=== PATIENT | male | born 1940 | race Caucasian/White ===

== ENCOUNTER 2020-05-29 08:05 | Emergency (ER) | payer MEDICARE, SELFPAY ==
--- NOTE | ~2020-05-29 | XR_ITS ---
EXAMINATION: XR finger 3rd LT min 2V DATE: 05/29/2020 08:32 INDICATION: Left hand third digit injury and pain and swelling. TECHNIQUE: 4 views of left hand third digit were obtained. COMPARISON: Left hand radiographs 12/26/2009 FINDINGS: There is an avulsion fracture of dorsal base of third middle phalanx with 4 mm distraction and rotation. 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 IMPRESSION: 1. Avulsion fracture of dorsal base of third middle phalanx. Reviewed, dictated and finalized at location B.
[2020-05-29 08:17] VITALS: BP 153/78; PULSE 83; RESP 16; TEMP 36.6; O2SAT 99
--- NOTE | 2020-05-29 08:18 | ED.GENADULT ---
HPI - General Adult General Chief complaint: Extremity Injury, Upper Stated complaint: Injury Time Seen by Provider: 05/29/20 08:30 Source: patient and RN notes reviewed Mode of arrival: ambulatory Limitations: no limitations History of Present Illness HPI narrative: 79-year-old male presents with concern for injury to the third digit of his left hand. Reports on Wednesday he tripped and fell injuring his finger. He reports a small skin tear on the right wrist, denies any other injury. Reports he used ice on the finger, but continues to have swelling. MD complaint: Finger injury Location: left and upper extremity Related Data Home Medications Medication Instructions Recorded Confirmed amlodipine 10 mg PO DAILY 05/29/20 05/29/20 atorvastatin 20 mg PO DAILY 05/29/20 05/29/20 hydrochlorothiazide 12.5 mg PO DAILY 05/29/20 05/29/20 lisinopril 40 mg PO DAILY 05/29/20 05/29/20 potassium chloride 10 meq PO DAILY 05/29/20 05/29/20 Allergies Allergy/AdvReac Type Severity Reaction Status Date / Time No Known Allergies Allergy Verified 05/29/20 08:31 Review of Systems Review of Systems: Narrative: CONSTITUTIONAL: Denies malaise, chills, sweats, or fever. CARDIOVASCULAR: Denies chest pain, palpitations RESPIRATORY: Denies cough or dyspnea. SKIN: Reports skin tear on the right wrist MUSCULOSKELETAL: Reports pain and swelling in the third digit of the left hand NEUROLOGIC: Denies numbness, weakness. All systems reviewed & are unremarkable except as noted in HPI and below PMFSH Comments At time of signature, agree with nursing past medical, surgical, social and family history. There is no relevant family history pertinent to the presenting complaint Exam Narrative: Exam Narrative: GENERAL: Well-appearing, well-nourished, and in no acute distress. HEAD: Normocephalic EYES: PERRLA, conjunctivae clear NECK: Supple. CHEST: Speaks in full sentences. No respiratory distress. HEART: Regular rate and rhythm. Normal and equal peripheral pulses. EXTREMITIES: Left hand and digits of hand have normal strength and sensation. 5/5 strength with digit flexion, extension. Range of motion normal. Hyperextension of the DIP joint of the third digit of the left hand, decreased flexion of the digit. No clubbing, cyanosis, or edema noted. Tenderness to the PIP joint DIP joint of the third digit. Skin intact. Median, ulnar and radial nerve intact. Normal sensation of each side of finger. Can perform 'okay' sign, 'cross over finger test of index and middle fingers' and 'thumbs up' sign. No scissoring. Normal thumb opposition. Good capillary refill and radial pulse. Distal capillary refill <3 seconds. SKIN: Warn, dry, intact, pink. No rash NEURO: Alert and oriented x3. PSYCH: Normal mood and affect Course Course Emergency Course: Patient is aware of diagnosis, understands and agrees to treatment plan. Anticipatory guidance given. Patient agrees to follow-up as directed and is aware of reasons to seek care at the emergency department. Portions of this record may have been created with voice recognition software Vital Signs Vital signs: Vital Signs Temperature 97.9 F 05/29/20 08:17 Pulse Rate 83 05/29/20 08:17 Respiratory Rate 16 05/29/20 08:17 Blood Pressure 153/78 H 05/29/20 08:17 Pulse Oximetry 99 05/29/20 08:17 Temperature 97.9 F 05/29/20 08:17 Pulse Rate 83 05/29/20 08:17 Respiratory Rate 16 05/29/20 08:17 Blood Pressure 153/78 H 05/29/20 08:17 Pulse Oximetry 99 05/29/20 08:17 Reviewed. Pt has been instructed to follow up with his primary care provider within the next week regarding his elevated blood pressure today. Medical Decision Making MDM Narrative Medical decision making narrative: Patients injury and pain is consistent with musculoskeletal etiology. No signs of neurological or vascular compromise on exam. Compartments and tissues are soft without signs of compartment syndrome. Pain is felt appropria
== END 2020-05-29 09:03 | disposition home or self-care (01) ==
PROVIDERS: Emergency Provider Nurse Practitioner; PCP Physician Assistant
DX: S62.623A Displaced fracture of middle phalanx of left middle finger, initial encounter for closed fracture (principal); W01.0XXA Fall on same level from slipping, tripping and stumbling without subsequent striking against object, initial encounter; E78.00 Pure hypercholesterolemia, unspecified; I10 Essential (primary) hypertension
CPT/HCPCS: 29130; 73140; 99214; G0463

== ENCOUNTER 2024-05-12 09:22 | Emergency (ER) | payer MEDICARE, SELFPAY ==
--- NOTE | ~2024-05-12 | XR_ITS ---
XR chest 2V Ordering provider: Nishi Mirza APRN History: 83 years Male with . Cough SOB x 6-8 weeks,COUGH WITH INSPIRATION . Comparison: None. FINDINGS: MEDIASTINUM: The cardiac silhouette is not enlarged. Slightly prominent melita. LUNGS: No infiltrates, effusions or pneumothorax. OTHER: No free air under the diaphragm. Degenerative spine. IMPRESSION: No acute cardiopulmonary pathology. Reviewed, dictated and finalized at location A.
--- NOTE | 2024-05-12 09:26 | ED.URI ---
HPI - URI/Sore Throat General Chief Complaint: Upper Respiratory Infection Stated Complaint: chest congestion/sob Time Seen by Provider: 05/12/24 09:44 Source: patient, RN notes reviewed and old records reviewed Mode of arrival: ambulatory Limitations: no limitations History of Present Illness HPI Narrative: 83-year-old male presents to the [facility] with complaints of cough, congestion and shortness of breath that has been going on for the last 6-8 weeks Patient has not followed up with his primary care provider states that he is switching 1 due to ?my primary care to disappeared. ? Denies any past chest pain, denies shortness of breath. Denies any extremity swelling. States that sometimes a vaporizer helps, sometimes the Mucinex helps. Onset (ago): week(s) (-) Related Data Home Medications Medication Instructions Recorded Confirmed amlodipine 10 mg tablet 10 mg PO DAILY 05/29/20 05/29/20 atorvastatin 20 mg tablet 20 mg PO DAILY 05/29/20 05/29/20 hydrochlorothiazide 12.5 mg tablet 12.5 mg PO DAILY 05/29/20 05/29/20 lisinopril 40 mg tablet 40 mg PO DAILY 05/29/20 05/29/20 potassium chloride 10 mEq 10 meq PO DAILY 05/29/20 05/29/20 tablet,extended release olmesartan 40 mg tablet mg 05/12/24 Allergies Allergy/AdvReac Type Severity Reaction Status Date / Time No Known Allergies Allergy Verified 05/29/20 08:31 Review of Systems Review of Systems: All systems reviewed & are unremarkable except as noted in HPI and below Constitutional: Constitutional: Reports no additional constitutional complaints Eyes: Eyes: Reports no additional eye complaints ENT: Reports system reviewed and no additional complaints, except as documented Cardiovascular: Cardiovascular: Reports no additional cardiovascular complaints, Denies chest pain and Denies dyspnea Respiratory: Respiratory: Reports as per HPI, Reports chest congestion, Reports cough and Denies dyspnea Gastrointestinal: Gastrointestinal: Reports no additional gastrointestinal complaints, Denies abdominal pain, Denies nausea and Denies vomiting Musculoskeletal: Musculoskeletal: Reports no additional musculoskeletal complaints Integumentary/Breasts: Skin/Breast: Reports system reviewed and no additional complaints, except as docu Neurologic: Reports system reviewed and no additional complaints, except as documented Psychiatric: Psychiatric: Reports no additional psychiatric complaints Allergic/Immunologic: Allergic/Immunologic: Reports no additional allergic/immunologic complaints PMFSH Past Medical History Medical History (Updated 05/12/24 @ 19:15 by Nishi Mirza APRN) High cholesterol History of high blood pressure Comments At the time of my signature, I reviewed and agree with the nursing past medical, surgical, social, and family history. There is no relevant family history pertinent to the patient complaint. Exam Const: General: cooperative, healthy appearing, comfortable, no acute distress, well developed, alert and well nourished Nutritional Appearance: well nourished Orientation/consciousness: patient oriented x3 Limitations: no limitations HENMT: Head: normal to inspection Ears: hearing grossly normal bilaterally, external ears normal, TM's normal bilaterally, EAC's normal, mastoids normal and no periauricular adenopathy Face/Nose/Sinus: Normal external nose present, Normal nares present, Normal nasal mucous membranes and turbinates present, normal facial exam and face symmetric Face and sinus: normal facial exam and face symmetric Throat: uvula midline, postnasal drainage and no uvular edema Eyes: General: appearance normal, both eyes and all related structures Alignment and Position: alignment normal Periorbital: periorbital findings normal Pupils: Equal, round and reactive pupils present EOM: EOMs intact bilaterally Neck: Neck: normal visual inspection, full ROM, no lymphadenopathy and no meningeal signs Chest: Chest palpation & inspection
[2024-05-12 09:38] VITALS: BP 130/60; PULSE 76; RESP 16; TEMP 36.8; O2SAT 99
== END 2024-05-12 10:32 | disposition home or self-care (01) ==
PROVIDERS: Emergency Provider Nurse Practitioner; PCP Physician Assistant
DX: J40 Bronchitis, not specified as acute or chronic (principal); J06.9 Acute upper respiratory infection, unspecified; E78.00 Pure hypercholesterolemia, unspecified; I10 Essential (primary) hypertension
CPT/HCPCS: 71046; 99213; G0463

== ENCOUNTER 2025-08-08 07:07 | Outpatient (CLI) | payer MEDICARE, SELFPAY ==
--- OUTSIDE RECORDS SUMMARY | 2009-06-26 03:45 | XMS_ITS | Continuity of Care Document ---
Author Organization [facility] Address [address] [facility] [address] [place] [address] Phone Care Team Providers Care Customer Support Representative Name Role Phone Naun Sawyer Unavailable Unavailable Procedures Procedure Date Eye Exam & Treatment No Script Refraction Advance Directives Directive Yes / No Effective Date File Name No Information Encounters Encounter Description Practice Location Reason(s) For Visit Diagnoses Date Provider Providers Copied on Encounter [facility], [address], [place], [place], [id number], tel:[phone] [facility] No Information [phone] 9 Silverio Magallon. [address] [facility] [address], [place], [address], [place]. tel:[phone] Family History Family Member Type Diagnosis Age At Onset No Information Payers Payer name Insurance type Covered republican ID Authoriza tion(s) Medicare [facility] [id number] [facility] CI [id number] Social History Type Description Quantity Date Captured Comments Sex Male Smoking Status No Information Chief Complaint And Reason For Visit No Information Reason For Referral Reason For Referral No Information History Of Present Illness Encounter Date Complaint History Of Prese nt Illness No Information Functional Status Date Functional Assessmen t No Information Instructions Date Instruction Additional Infor mation No Information Assessments Type Assessment Date No Information Patient Care Teams Name Effective Dates (start - stop) Status Members No Information
--- OUTSIDE RECORDS SUMMARY | 2025-08-08 07:12 | XMS_ITS | Encounter Summary ---
Author Organization [facility] Address [address] [facility] [address] [place] [address] Care Team Providers Care Wildlife Enforcement Major Name Role Phone Fred Norwood Primary Care Provider [phone] Encounter Details Date Type Department Care Team (Late st Contact Info) Description 12/17/2016 Orders Only [facility] ProviderKartik MD [address] [place] [address] Social History Tobacco Use Types Packs/Day Years Used Date Smoking Tobacco: Never Alcohol Use Standard Drinks/Week Comments No 0 (1 standard drink = 0.6 oz pur e alcohol) Sex and Gender Information Value Date Recorded Sex Assigned at Not on file 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 Historical Provider [facility] PROCE DURES Final Result * CARDIOLOGY REPORT (12/17/2016) Anatomical Region Laterality Modality Other Narrative 12/17/2016 Ordered by an unspecified provider. Historical Provider [facility] CARDIAC SERVICES PROCE DURES Final Result documented in this encounter Visit Diagnoses Not on filedocumented in this encounter Additional Health Concerns Infection Onset Date Last Indicated Resolved Time COVID: Suspected 08/05/2023 08/05/2023 08/05/2023 2:57 PM CDT documented as of this encounter Care Teams Wildlife Enforcement Major Relationship Specialty Start Date End Date Fred Norwood PA PCP - General Family Medicine 09/26/19 documented as of this encounter
--- OUTSIDE RECORDS SUMMARY | 2025-08-08 07:12 | XMS_ITS | Encounter Summary ---
Author Organization [facility] Address [address] 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 Historical Provider [facility] AILIN HERMAN Final Result documented in this encounter Visit Diagnoses Not on filedocumented in this encounter Additional Health Concerns Infection Onset Date Last Indicated Resolved Time COVID: Suspected 08/05/2023 08/05/2023 08/05/2023 2:57 PM CDT documented as of this encounter Care Teams Acrobatic Dancer Relationship Specialty Start Date End Date Fred Norwood PA PCP - General Family Medicine 09/26/19 documented as of this encounter
--- OUTSIDE RECORDS SUMMARY | 2025-08-08 07:12 | XMS_ITS | Encounter Summary ---
Author Organization [facility] Address [address] [facility] [address] [place] [address] Care Team Providers Care Investment Associate Name Role Phone Fred Norwood Primary Care Provider [phone] Encounter Details Date Type Department Care Team (Late st Contact Info) Description 09/10/2009 Orders Only [facility] ProviderKartik MD [address] [place] [address] Social History Tobacco Use Types Packs/Day Years Used Date Smoking Tobacco: Never Assessed Sex and Gender Information Value Date Recorded Sex Assigned at Not on file 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 Historical Provider [facility] AILIN HERMAN Final Result documented in this encounter Visit Diagnoses Not on filedocumented in this encounter Additional Health Concerns Infection Onset Date Last Indicated Resolved Time COVID: Suspected 08/05/2023 08/05/2023 08/05/2023 2:57 PM CDT documented as of this encounter Care Teams Investment Associate Relationship Specialty Start Date End Date Fred Norwood PA PCP - General Family Medicine 09/26/19 documented as of this encounter
--- OUTSIDE RECORDS SUMMARY | 2025-08-08 07:12 | XMS_ITS | Encounter Summary ---
Author Organization [facility] Address [address] [facility] [place] [address] Care Team Providers Care Music Ministries Director Name Role Phone Unavailable Primary Care Provider Unavailabl e Encounter Details Date Type Department Care Team (Late st Contact Info) Description 10/25/2019 Lab Requisition [facility] DermPath Lab [address] [facility] [place] [address] Sandi Byrne MD [address] [facility] [address] [place] [address] Social History Tobacco Use Types Packs/Day Years Used Date Smoking Tobacco: Never Alcohol Use Standard Drinks/Week Comments No 0 (1 standard drink = 0.6 oz pur e alcohol) Sex and Gender Information Value Date Recorded Sex Assigned at Not on file Legal Sex Male 6:09 PM SEMICONDUCTOR DEVELOPMENT TECHNICIAN Gender Identity Not on file Sexual Orientation Not on file documented as of this encounter Plan of Treatment Not on file documented as of this encounter Procedures Procedure Name Priority Date/Time Associated Diagnosis Comments DERMATOPATHOLOGY Routine 10/24/2019 12:0 0 AM SEMICONDUCTOR DEVELOPMENT TECHNICIAN documented in this encounter Results * DERMATOPATHOLOGY (10/24/2019 12:00 AM SEMICONDUCTOR DEVELOPMENT TECHNICIAN) Case Report Dermatopathology Report Case: [id number] Authorizing Provider: Sandi Byrne MD Collected: 10/24/2019 12:00 AM Ordering Location: [facility] DermPath Lab Received: 10/25/2019 07:24 AM Pathologist: Morgan Maddox MD Specimen: Skin, right neck 0 3:38 PM SEMICONDUCTOR DEVELOPMENT TECHNICIAN DERMATOPATHOLOGY LABORATORY Final Diagnosis Specimen A. 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 0 3:38 PM [facility] DERMATOPATHOLOGY LABORATORY Gross Description Specimen A: Received is one formalin filled container labeled with the patient's name and designated right neck. The specimen consists of a shave measuring [id number]. Jar 0. 0 3:38 PM [facility] DERMATOPATHOLOGY LABORATORY Microscopic Description Specimen A. SKIN, right neck: Attached to the undersurface of the epidermis, there are small aggregates of basaloid cells with a high nuclear to cytoplasmic ratio and peripheral palisading. 0 3:38 PM [facility] DERMATOPATHOLOGY LABORATORY Disclaimer An external and internal positive and negative controls are appropriate for the histochemical, immunohistochemical and immunofluorescence stain(s) in this case (if any), except where stated explicitly. The performance characteristics of the stain(s) cited in this report were developed and its performance characteristic determined by the Dermatopathology Laboratory at [facility], directed by Dr. Sabino Maddox. These tests need not be, and therefore are not, approved by the [place] Food and Drug Administration. The tests are used for clinical purposes. Billing Codes Specimen Charges Stain Charges 57283 1 0 3:38 PM [facility] DERMATOPATHOLOGY LABORATORY Embedded Images 0 3:38 PM [facility] DERMATOPATHOLOGY LABORATORY Pathology/Cytolog y TISSUE SPECIMEN FROM SKIN / Unknown 10/24/2019 10/25/2019 7:24 AM SEMICONDUCTOR DEVELOPMENT TECHNICIAN Sandi Byrne MD LAB - PATHOLOGY/CYTOLOGY OR DERABLES Final Result DERMATOPATHOLOGY LABORATORY [facility] - Department of Dermatology [facility] [facility] [place] [address], [facility] [phone] documented in this encounter Visit Diagnoses Not on filedocumented in this encounter
--- OUTSIDE RECORDS SUMMARY | 2025-08-08 07:12 | XMS_ITS | Encounter Summary ---
Author Organization [facility] Address [address] [facility] [address] [place] [address] Care Team Providers Care Ssis Developer Name Role Phone Fred Norwood Primary Care Provider [phone] Encounter Details Date Type Department Care Team (Late st Contact Info) Description 10/25/2015 Orders Only [facility] ProviderKartik MD [address] [place] [address] Social History Tobacco Use Types Packs/Day Years Used Date Smoking Tobacco: Never Assessed Sex and Gender Information Value Date Recorded Sex Assigned at Not on file 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 Historical Provider [facility] AILIN HERMAN Final Result documented in this encounter Visit Diagnoses Not on filedocumented in this encounter Additional Health Concerns Infection Onset Date Last Indicated Resolved Time COVID: Suspected 08/05/2023 08/05/2023 08/05/2023 2:57 PM CDT documented as of this encounter Care Teams Ssis Developer Relationship Specialty Start Date End Date Fred Norwood PA PCP - General Family Medicine 09/26/19 documented as of this encounter
--- OUTSIDE RECORDS SUMMARY | 2025-08-08 07:12 | XMS_ITS | Encounter Summary ---
Author Organization [facility] Address [address] [facility] [address] [place] [address] Care Team Providers Care Victorian Literature Professor Name Role Phone Fred Norwood Primary Care Provider [phone] Encounter Details Date Type Department Care Team (Late st Contact Info) Description 09/24/2009 Orders Only [facility] ProviderKartik MD [address] [place] [address] Social History Tobacco Use Types Packs/Day Years Used Date Smoking Tobacco: Never Assessed Sex and Gender Information Value Date Recorded Sex Assigned at Not on file 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 Historical Provider [facility] AILIN HERMAN Final Result documented in this encounter Visit Diagnoses Not on filedocumented in this encounter Additional Health Concerns Infection Onset Date Last Indicated Resolved Time COVID: Suspected 08/05/2023 08/05/2023 08/05/2023 2:57 PM CDT documented as of this encounter Care Teams Victorian Literature Professor Relationship Specialty Start Date End Date Fred Norwood PA PCP - General Family Medicine 09/26/19 documented as of this encounter
--- OUTSIDE RECORDS SUMMARY | 2025-08-08 07:12 | XMS_ITS | Clinical Summary ---
Author Organization [facility] Address [address] [place] [address] Phone Care Team Providers Care Assistant Front Desk Manager Name Role Phone Fred Norwood Primary Care Provider Unavaila ble Allergies No known active allergies Medications simvastatin (ZOCOR) 10 MG Tablet Take 10 mg by mouth every evening. Active aspirin 81 MG Chewable Tablet Take 162 mg by mouth daily. Active lisinopril (PRINIVIL, ZESTRIL) 40 MG Tablet Take 40 mg by mouth daily. Active hydrochlorothiaz chio (MICROZIDE) 12.5 MG Capsule Take 12.5 mg by mouth daily. Active amLODIPine (NORVASC) 10 MG Tablet Take 10 mg by mouth daily. Active metoprolol Succinate (TOPROL-XL) 50 MG TABLET SR 24 HR Take 1 Tab by mouth daily. 90 Tab 3 04/05/2016 Active Immunizations Immunization Administration Dates Next Due Influenza Vaccine greater than 3 yrs 07/05/2015 Pneumococcal Vaccine Adult - 23 Valent 5 Zoster Vaccine, live 07/05/2015 Family History Medical History Relation Name Comments Aneurysm Father Congestive Heart Failure Mother Relation Name Status Comments Father Mother Alive Social History Tobacco Use Types Packs/Day Years Used Date Smoking Tobacco: Never Alcohol Use Standard Drinks/Week Comments No 0 (1 standard drink = 0.6 oz pur e alcohol) Sex and Gender Information Value Date Recorded Sex Assigned at Not on file Legal Sex Male 9:47 PM CDT Gender Identity Not on file Sexual Orientation Not on file Last Filed Vital Signs Vital Sign Reading Time Taken Comments Blood Pressure 133/80 04/04/2016 8:25 AM CDT Pulse 82 04/04/2016 8:25 AM CDT Temperature 36 C (96.8 F) 04/04/2016 8:25 AM CDT Respiratory Rate 20 04/04/2016 8:25 AM CDT Oxygen Saturation 96% 04/04/2016 9:15 AM CDT Inhaled Oxygen Concentration - - Weight 76 kg (167 lb 8 oz) 04/04/2016 7:58 AM CD T Height 175.3 cm (5' 9) 04/04/2016 7:58 AM CDT Body Mass Index 24.74 04/04/2016 7:58 AM CDT Plan of Treatment Not on file Insurance MEDICARE [facility] Care Teams Assistant Front Desk Manager Relationship Specialty Start Date End Date Fred Norwood, GRIFFIN PCP - General Physician Customer Logistics Manager 04/04/16
--- OUTSIDE RECORDS SUMMARY | 2025-08-08 07:12 | XMS_ITS | Encounter Summary ---
Author Organization [facility] Address [address] [address] [facility] [address] [place] [id number] Care Team Providers Care Wire Stitcher Name Role Phone Fred Norwood Primary Care Provider [phone] Encounter Details Date Type Department Care Team (Late st Contact Info) Description 10/05/2014 Orders Only [facility] ProviderKartik MD [address] [place] [address] Social History Tobacco Use Types Packs/Day Years Used Date Smoking Tobacco: Never Assessed Sex and Gender Information Value Date Recorded Sex Assigned at Not on file 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 Historical Provider [facility] AILIN HERMAN Final Result documented in this encounter Visit Diagnoses Not on filedocumented in this encounter Additional Health Concerns Infection Onset Date Last Indicated Resolved Time COVID: Suspected 08/05/2023 08/05/2023 08/05/2023 2:57 PM CDT documented as of this encounter Care Teams Wire Stitcher Relationship Specialty Start Date End Date Fred Norwood PA PCP - General Family Medicine 09/26/19 documented as of this encounter
--- OUTSIDE RECORDS SUMMARY | 2025-08-08 07:12 | XMS_ITS | Encounter Summary ---
Author Organization [facility] Address [address] [facility] [address] [place] [address] Care Team Providers Care Instrumental Teacher Name Role Phone Unavailable Primary Care Provider Unavailabl e Encounter Details Date Type Department Care Team (Late st Contact Info) Description 12/25/2019 Lab Requisition [facility] [address] [facility] [place] [address] Sandi Byrne MD [address] [facility] [address] [place] [address] Social History Tobacco Use Types Packs/Day Years Used Date Smoking Tobacco: Never Alcohol Use Standard Drinks/Week Comments No 0 (1 standard drink = 0.6 oz pur e alcohol) Sex and Gender Information Value Date Recorded Sex Assigned at Not on file 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 Gender Identity Not on file Sexual Orientation Not on file documented as of this encounter Plan of Treatment Not on file documented as of this encounter Procedures Procedure Name Priority Date/Time Associated Diagnosis Comments DERMATOPATHOLOGY Routine 12/22/2019 12:0 0 AM EXPERIMENTAL ELECTRONICS DEVELOPER documented in this encounter Results * DERMATOPATHOLOGY (12/22/2019 12:00 AM EXPERIMENTAL ELECTRONICS DEVELOPER) Case Report Dermatopathology Report Case: [id number] Authorizing Provider: Sandi Byrne MD Collected: 12/22/2019 12:00 AM Ordering Location: [facility] Received: 12/25/2019 09:57 AM Pathologist: Morgan Maddox MD Specimen: Skin, right neck 0 4:14 PM CDT DERMATOPATHOLOGY LABORATORY Final Diagnosis Specimen A. SKIN, right neck: BASAL CELL CARCINOMA (C44.41) NOT PRESENT AT MARGIN DERMAL SCAR (L90.5) 0 4:14 PM CDT DERMATOPATHOLOGY LABORATORY at 1614 CDT Clinical History R/O BCC, superficial multifocal, biopsy proven. 0 4:14 PM CDT DERMATOPATHOLOGY LABORATORY Gross Description Specimen A: Received is one formalin filled container labeled with the patient's name and designated right neck. The specimen consists of a non-oriented ellipse of skin measuring [id number]. The epidermal surface consists of a centrally located 4x4mm previous biopsy site. The margin is inked green. The 12 o'clock and 6 o'clock tips are submitted in cassette 1. The remainder of the ellipse is serially sectioned and submitted in cassettes 2-4. Jar 0. 0 4:14 PM CDT DERMATOPATHOLOGY LABORATORY Microscopic Description Specimen A. SKIN, right neck: Within the dermis there are aggregates of basaloid cells with a high nuclear to cytoplasmic ratio and peripheral palisading. This lesion is not present at the margin of the specimen. There are fibroblasts and collagen bundles oriented parallel to the skin surface with elongated blood vessels, some of which are oriented perpendicular to the skin surface. 0 4:14 PM CDT DERMATOPATHOLOGY LABORATORY Disclaimer An external and internal [...] purposes. Billing Codes Specimen Charges Stain Charges 91270 1 0 4:14 PM CDT DERMATOPATHOLOGY LABORATORY Embedded Images 0 4:14 PM CDT DERMATOPATHOLOGY LABORATORY Pathology/Cytolog y TISSUE SPECIMEN FROM SKIN / Unknown 12/22/2019 12/25/2019 9:57 AM CDT Sandi Byrne MD LAB - PATHOLOGY/CYTOLOGY OR DERABLES Final Result DERMATOPATHOLOGY LABORATORY [facility] - Department of Dermatology [facility] [facility], [address] Floor Lab [address] [phone] documented in this encounter Visit Diagnoses Not on filedocumented in this encounter
--- OUTSIDE RECORDS SUMMARY | 2025-08-08 07:12 | XMS_ITS | Encounter Summary ---
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 Historical Provider Final Res ult * SCAN - LABS (04/22/2016 12:00 AM CDT) Narrative 04/22/2016 12:00 AM CDT Ordered by an unspecified provider. Historical Provider Final Res ult documented in this encounter Visit Diagnoses Not on filedocumented in this encounter Additional Health Concerns Infection Onset Date Last Indicated Resolved Time COVID: Suspected 08/05/2023 08/05/2023 08/05/2023 2:57 PM CDT documented as of this encounter Care Teams Burn Out Tender Lace Relationship Specialty Start Date End Date Fred Norwood PA PCP - General Family Medicine 09/26/19 documented as of this encounter
--- OUTSIDE RECORDS SUMMARY | 2025-08-08 07:12 | XMS_ITS | Clinical Summary ---
Author Organization [facility] at the [facility] Building Address [address] [place] [address] Care Team Providers Care Graphics Edit Technician Name Role Phone Fred Norwood Primary Care Provider [phone] Allergies No known active allergies Medications multivitamin tablet tablet take 1 tablet by oral route every day with food 0 0 7 Active Additional Information Patient taking differently: 1 tablet oral Daily, Informant: Self, Reported on 06/08/2025 aspirin 81 mg enteric coated tablet Take 1 tablet (81 mg total) by mouth daily Active potassium chloride ER 10 mEq CR tablet TAKE 1 TABLET(10 MEQ) BY MOUTH DAILY 90 tablet 2 4 Active Additional Information Patient taking differently: 10 mEq oral Daily, Informant: Self, Reported on 06/08/2025 hydroCHLOROthi azide (HYDRODIURIL) 12.5 mg tablet TAKE 1 TABLET(12.5 MG) BY MOUTH DAILY 90 tablet 3 4 Active amLODIPine (NORVASC) 10 mg tablet TAKE 1 TABLET(10 MG) BY MOUTH DAILY 90 tablet 2 4 Active Additional Information Patient taking differently: 10 mg oral Nightly, Informant: Self, Reported on 06/08/2025 olmesartan (BENICAR) 40 mg tablet TAKE 1 TABLET(40 MG) BY MOUTH DAILY 90 tablet 2 4 Active Additional Information Patient taking differently: 40 mg oral Daily, Informant: Self, Reported on 06/08/2025 atorvastatin (LIPITOR) 40 mg tabletIndicati ons:Pt reports he only takes 40 mg daily Take 1.5 tablets (60 mg total) by mouth nightly Active cholecalcifero l (VITAMIN D-3) 2000 unit tablet Take 1 tablet (2,000 Units total) by mouth every other day Active UNABLE TO FIND Take 1 each by mouth daily Med Name: TNVITAMINS TRIPLE MAGNESIUM COMPLEX CITRATE GLYCINATE OXIDE Active UNABLE TO FIND Take 1 each by mouth daily Med Name: Nature's Truth C 1000 mg plus bioflavonoids & wild dawna hips Active clopidogreL (PLAVIX) 75 mg tablet Take 1 tablet (75 mg total) by mouth daily 30 tablet 4 5 05/08/20 26 Active amoxicillin (AMOXIL) 500 mg tablet/capsule Take 4 caps (2000 mg) 1 hour prior to procedure. 4 tablet/capsu le 5 Active Active Problems Problem Noted Date Diagnosed Date S/P TAVR (transcatheter aortic valve replacement ) 05/08/2025 Severe aortic stenosis 02/12/2025 Herpes zoster without complication 05/11/2023 Assessment & Plan (05/11/2023 7:47 AM CDT): Resolving and 2 weeks out Rib pain 11/07/2020 Assessment & Plan (11/07/2020 12:07 PM FAREBOX REPAIRER): This is very mild and I am unable to reproduce for now we agreed to observe Acute left-sided low back pain without sciatica 11/07/2020 Assessment & Plan (11/07/2020 12:10 PM FAREBOX REPAIRER): I am getting x-rays, Thoracic back pain 11/07/2020 Assessment & Plan (11/07/2020 11:32 AM FAREBOX REPAIRER): Suspect from fall will get x-ray to r/o out compression fracture Interstitial myositis of right shoulder 08/14/20 19 Assessment & Plan (01/21/2023 8:45 AM CDT): Massage, ice, medications Option for trigger point injections Stenosis of left carotid artery 08/22/2018 Overview (02/07/2019): 50-79% stenosis. Assessment & Plan (01/20/2024 6:30 AM CDT): Stable and followed by cardiology Assessment & Plan (05/11/2023 7:49 AM CDT): Stable and followed by cardiology Assessment & Plan (01/21/2023 8:49 AM CDT): Seeing cardiology and had recent US Assessment & Plan (11/11/2021 11:15 AM FAREBOX REPAIRER): Consultation to cardiology Assessment & Plan (11/07/2020 12:07 PM FAREBOX REPAIRER): This is stable followed by cardiology Assessment & Plan (05/07/2020 9:55 AM CDT): 50-79, will follow Benign prostatic hyperplasia with lower urinary tract symptoms 08/10/2018 Assessment & Plan (01/20/2024 6:30 AM CDT): No treatment Assessment & Plan (05/11/2023 7:49 AM CDT): No treatment Assessment & Plan (11/11/2021 11:14 AM FAREBOX REPAIRER): Currently no treatment Assessment & Plan (11/07/2020 12:10 PM FAREBOX REPAIRER): No current treatment Depression screen 08/09/2018 Assessment & Plan (01/21/2023 8:46 AM CDT): No depression Assessment & Plan (11/07/2020 12:10 PM FAREBOX REPAIRER): Patient is not depressed Encounter for general adult medical examination without abnormal findings 08/09/2018 Assessment & Plan (01/20/2024 6:30 AM CDT): HEALTHCARE MAINTENANCE, please get shingrix Assessment & Plan (01/21/2023 8:47 AM CDT): HEALTHCARE MAINTENANCE, please get shingrix Assessment & Plan (11/11/2021 11:14 AM FAREBOX REPAIRER): Healthcare maintenance updated, colo guard ordered Assessment & Plan (11/07/2020 12:08 PM FAREBOX REPAIRER): Healthcare maintenance updated Encounter for risk and functional assessment of patient 08/09/2018 Assessment & Plan (01/20/2024 6:30 AM CDT): Patient is very at active and able to perform all ADL Assessment & Plan (11/07/2020 12:08 PM FAREBOX REPAIRER): Patient is very at active and able to perform all ADL Risk for falls 08/09/2018 Assessment & Plan (11/07/2020 12:07 PM FAREBOX REPAIRER): Patient has had a couple falls but it is due to his activity not inactivity or tripping BMI 22.0-22.9, adult 08/09/2018 Erectile dysfunction 02/08/2018 Assessment & Plan (01/20/2024 6:30 AM CDT): No tratment Assessment & Plan (05/11/2023 7:47 AM CDT): No tratment Assessment & Plan (11/11/2021 11:14 AM FAREBOX REPAIRER): Currently no treatment Assessment & Plan (11/07/2020 12:08 PM FAREBOX REPAIRER): No current treatment Assessment & Plan (05/07/2020 9:54 AM CDT): No treatment Acute pain of right shoulder 02/08/2018 Essential hypertension 07/19/2017 Assessment & Plan (01/20/2024 6:30 AM CDT): Images from the original note were not included. This is a stable chronic condition. Monitor blood pressure, call if out of parameters as we discussed. Low sodium and caffeine diet. baby asa as discussed if applicable. Diet, exercise and weight reduction. Labs as ordered. F/U routine Assessment & Plan (05/11/2023 7:48 AM CDT): Images from the original note were not included. This is a stable chronic condition. Monitor blood pressure, call if out of parameters as we discussed. Low sodium and caffeine diet. baby asa as discussed if applicable. Diet, exercise and weight reduction. Labs as ordered. F/U routine Assessment & Plan (01/21/2023 8:47 AM CDT): Images from the original note were not included. This is a stable chronic condition. Monitor blood pressure, call if out of parameters as we discussed. Low sodium and caffeine diet. baby asa as discussed if applicable. Diet, exercise and weight reduction. Labs as ordered. F/U routine Assessment & Plan (11/11/2021 11:14 AM FAREBOX REPAIRER): This is a stable chronic condition. Monitor blood pressure, call if out of parameters as we discussed. Low sodium and caffeine diet. baby asa as discussed if applicable. Diet, exercise and weight reduction. Labs as ordered. F/U routine Assessment & Plan (11/07/2020 12:08 PM FAREBOX REPAIRER): Images from the original note were not included. This is a stable chronic condition. Monitor blood pressure, call if out of parameters as we discussed. Low sodium and caffeine diet. baby asa as discussed if applicable. Diet, exercise and weight reduction. Labs as ordered. F/U routine Assessment & Plan (05/07/2020 9:54 AM CDT): Images from the original note were not included. This is a stable chronic condition. Monitor blood pressure, call if out of parameters as we discussed. Low sodium and caffeine diet. baby asa as discussed if applicable. Diet, exercise and weight reduction. Labs as ordered. F/U routine Mixed hyperlipidemia 07/19/2017 Assessment & Plan (01/20/2024 6:30 AM CDT): Patient is to continue present medications, work on diet and exercise as discussed, we did discuss the medications and potential side effects and signs and symptoms that would warrant calling office. Follow up routine. Assessment & Plan (05/11/2023 7:48 AM CDT): Patient is to continue present medications, work on diet and exercise as discussed, we did discuss the medications and potential side effects and signs and symptoms that would warrant calling office. Follow up routine. Assessment & Plan (01/21/2023 8:47 AM CDT): Patient is to continue present medications, work on diet and exercise as discussed, we did discuss the medications and potential side effects and signs and symptoms that would warrant calling office. Follow up routine. Assessment & Plan (11/11/2021 11:14 AM FAREBOX REPAIRER): Patient is to continue present medications, work on diet and exercise as discussed, we did discuss the medications and potential side effects and signs and symptoms that would warrant calling office. Follow up routine. Assessment & Plan (11/07/2020 12:08 PM FAREBOX REPAIRER): Patient is to continue present medications, work on diet and exercise as discussed, we did discuss the medications and potential side effects and signs and symptoms that would warrant calling office. Follow up routine. Assessment & Plan (05/07/2020 9:54 AM CDT): Patient is to continue present medications, work on diet and exercise as discussed, we did discuss the medications and potential side effects and signs and symptoms that would warrant calling office. Follow up routine. Vitamin D deficiency 07/19/2017 Assessment & Plan (01/20/2024 6:30 AM CDT): Continue current medication Assessment & Plan (11/11/2021 11:15 AM FAREBOX REPAIRER): Continue current medication Assessment & Plan (11/07/2020 12:07 PM FAREBOX REPAIRER): Please continue taking same dose Assessment & Plan (05/07/2020 9:55 AM CDT): CPM Personal history of other malignant neoplasm of skin 11/13/2011 Assessment & Plan (11/11/2021 11:15 AM FAREBOX REPAIRER): Consultation to Dermatology Assessment & Plan (11/07/2020 12:07 PM FAREBOX REPAIRER): Going to consult Dermatology for routine follow-up Resolved Problems Problem Noted Date Diagnosed Date Resolved Date Benign prostatic hyperplasia with lower urinary tract symptoms 05/07/2020 11/07/2020 Assessment & Plan (01/21/2023 8:46 AM CDT): This is well controlled Assessment & Plan (05/07/2020 10:03 AM CDT): Offered medications, wants to try restriction Pure hypercholesterolemia 08/28/2019 Encounters Date Type Department Care Team Description 07/05/2025 Telephone [facility] Cardiology [address] [place] [phone] Angie Montaño MD 06/20/2025 Documentation [facility] Cardiology [address] [place] [phone] Libertad Eisenberg, GENE 06/19/2025 Documentation [facility] Cardiology [address] [place] [phone] Libertad Eisenberg, GENE 06/19/2025 Telephone [facility] Cardiac Rehab [address] [place] [address] Jessica Head, sales and service engineer 06/08/2025 9:30 AM CDT Office Visit [facility] Cardiology [address] [place] [phone] Angie Montaño MD History of transcatheter aortic valve replacement (TAVR) (Primary Dx) 06/04/2025 2:11 PM CDT - 06/04/2025 11:59 PM CDT Hospital Encounter [facility] OP Cardiac Testing [address] [place] [phone] S/P TAVR (transcatheter aortic valve replacement) Discharge Disposition: Discharge to home or self care 05/08/2025 7:30 AM CDT - 05/08/2025 9:55 AM CDT Surgery [facility] OR [address] [place] [phone] Angie Montaño MD Transcatheter Aortic Valve Replacement - Femoral Art 05/08/2025 7:22 AM CDT Anesthesia Event [facility] OR [address] [place] [phone] Yamile Yun MD Taylor-White, Carlotta A. HOSPICE SUPERINTENDENT 05/08/2025 5:21 AM CDT - 05/09/2025 1:00 PM CDT Hospital Encounter [address] [address] Angie Montaño MD Kruse, Brandon Chase, DO Ali, Md Shahin, MD S/P TAVR (transcatheter aortic valve replacement) (Primary Dx); Severe aortic stenosis; Herpes zoster without complication Discharge Disposition: Discharge to home or self care from Last 3 Months Immunizations Immunization Administration Dates Next Due Influenza, Quad, Adjuvantate d, Intramuscular 07/18/2020 Influenza, Quadrivalent, Hig h Dose, Preservative Free, Intrr 07/30/2023,07/23/2022,07/15/2021 Influenza, Trivalent, Adjuva nted, Intramuscular 07/17/2018 Influenza, Trivalent, High D ose, Split, Preservative Free, Intramuscular 08/08/2019,07/19/2017,08/05/2016 Influenza, Trivalent, IM (MDV) 5,06/26/2014,08/16/2013,08/15 Influenza, Trivalent, Preser vative Free, Intramuscular 08/04/2015 Influenza, Unspecified 07/30/2023,2021,08/11/2021,07/18,08/08/2019,07/18/2018 Pneumococcal Conjugate PCV 13 08/26/2015 Pneumococcal Polysaccharide PPV23 07/05/2015, RSV Vaccine, Pref, Recombina nt, Subunit, Adjuvanted, PF, IM (Arexvy) 07/30/2023 Tdap 11/02/2019 ZOSTER LIVE 07/05/2015,06/26/2014 ZOSTER Recombinant 01/21/2023 Surgical History Surgery Date Site/Laterality Comments VASECTOMY TONSILLECTOMY CARDIAC CATHETERIZATION 02/16/2025 N/A Procedure: LEFT HEART CATHETERIZATION WITH CORONARY ANGIOGRAPHY AND WITH OR WITHOUT LEFT VENTRICULOGRAM [id number]; Surgeon: Angie Montaño MD; Location: [facility]; Service: Cardiovascular; Laterality: N/A; CARDIAC CATHETERIZATION 02/16/2025 N/A Procedure: Right Left Heart Catheterization with Coronary Angiography with or without Left Ventriculography [id number]; Surgeon: Angie Montaño MD; Location: [facility]; Service: Cardiovascular; Laterality: N/A; CARDIAC CATHETERIZATION 05/08/2025 Chest/N/A Procedure: Transcatheter Aortic Valve Replacement - Femoral Art; Surgeon: Angie Montaño MD; Location: [facility] OPER[facility] RO[facility]; Service: Cardiovascular; Laterality: N/A; Medical devices from this surgery are in the Medical Devices section. CARDIAC CATHETERIZATION 05/08/2025 Chest/N/A Procedure: TAVR - PERCUTANEOUS FEMORAL [id number]; Surgeon: Malik Kessler MD; Location: [facility]; Service: Cardiothoracic; Laterality: N/A; Medical devices from this surgery are in the Medical Devices section. Medical History Medical History Date Comments Hypertension Hyperlipidemia Vitamin D deficiency Aortic valve stenosis Cataracts, bilateral Wears glasses History of shingles 2022 Skin cancer Basal cell; face , nose and arm x 5 episodes Family History Medical History Relation Name Comments Aneurysm Father Heart attack Father Myocardial infa rction; Cause of : Myocardial infarction Heart failure Mother Congestive hea rt failure; Cause of : Congestive heart failure Relation Name Status Comments Brother Other Father (Age 37) Mother (Age 78) Social History Tobacco Use Types Packs/Day Years Used Date Smoking Tobacco: Never Passive Smoke Exposure: Never Smokeless Tobacco: Never Tobacco Cessation:Counseling Given: Not Answered Alcohol Use Standard Drinks/Week Comments No 0 (1 standard drink = 0.6 oz pur e alcohol) [facility] Utilities Answer Date Recorded In the past 12 months has [employer], gas, oil, or water [employer] threatened to shut off services in your home? No 05/09/2025 Social Connection and Isolation Panel Answer Date Recorded In a typical week, how many times do you talk on the phone with family, friends, or neighbors? More than three times a week 05/09/2025 How often do you get togethe r with friends or relatives? Three times a week 05/09/2025 How often do you attend chur ch or restorationism services? Never 05/09/2025 Do you belong to any clubs o r organizations such as zoroastrian groups, unions, fraternal or athletic groups, or school groups? No 05/09/2025 How often do you attend meet ings of the clubs or organizations you belong to? Never 05/09/2025 Are you , , di vorced, , never , or living with a partner? 05/09/2025 AUDIT-C Answer Date Recorded Q1: How often do you have a drink containing alcohol? Never 05/08/2025 Q2: How many drinks containi ng alcohol do you have on a typical day when you are drinking? Patient does not drink Q3: How often do you have si x or more drinks on one occasion? Never 05/08/2025 Overall Financial Resource Strain (CARDIA) Answe r Date Recorded How hard is it for you to pa y for the very basics like food, housing, medical care, and heating? Not hard at all 05/09/2025 PHQ-2 Answer Date Recorded PHQ-2 Total Score (If total score is 3 or more points, staff should administer the PHQ-9) 0 01/25/2024 Hunger Vital Sign Answer Date Recorded Within the past 12 months, y ou worried that your food would run out before you got the money to buy more. Never true 05/09/20 25 Within the past 12 months, t he food you bought just didn't last and you didn't have money to get more. Never true 05/09/2025 PRAPARE - Transportation Answer Date Re corded In the past 12 months, has l ack of transportation kept you from medical appointments or from getting medications? No 04/18 In the past 12 months, has l ack of transportation kept you from meetings, work, or from getting things needed for daily living? No 05/09/2025 Housing Stability Vital Sign Answer Niraj e Recorded In the last 12 months, was t here a time when you were not able to pay the mortgage or rent on time? No 05/09/2025 In the past 12 months, how m any times have you moved where you were living? 0 05/09/2025 At any time in the [facility], were you homeless or living in a penitentiary (including now)? No 05/09/2025 Personal Safety Answer Date Recorded Have you ever been in or are you currently in a harmful physical or emotional relationship or is someone making you feel afraid or unsafe? Denies 05/08/2025 Sex and Gender Information Value Date Recorded Sex Assigned at Not on file Legal Sex Male 12:41 AM FAREBOX REPAIRER Gender Identity Not on file Sexual Orientation Not on file Obstetrics History Last Filed Vital Signs Vital Sign Reading Time Taken Comments Blood Pressure 122/58 06/08/2025 9:13 AM CDT Pulse 73 06/08/2025 9:13 AM CDT Temperature 36.7 C (98.1 F) 05/09/2025 11:00 AM CDT Respiratory Rate 19 05/09/2025 11:00 AM CDT Oxygen Saturation 97% 06/08/2025 9:13 AM CDT Inhaled Oxygen Concentration - - Weight 71.2 kg (157 lb) 06/08/2025 9:13 AM CDT Height 170.2 cm (5' 7) 05/08/2025 6:07 AM CDT Body Mass Index 24.59 05/08/2025 6:07 AM CDT Plan of Treatment Health Maintenance Due Date Last Done Comments Hepatitis B Screening 1958 Depression Screening 01/24/2025 01/25/2024, 01/21/2023, 11/11/2021, Additional history exists Well Visit 65+ 01/24/2025 01/25/2024, 0403/2023, 11/11/2021, Additional history exists Covid-19 Vaccine (2024- 6 season) 2025 07/30/2023, 07/23/2022, 01/16/2022, Additional history exists Influenza Vaccine (#1) 2025 , 07/30/2023, 07/30/2023, Additional history exists Fall Risk Assessment 05/09/2026 05/09/2025, 01/25/2024, 01/21/2023, Additional history exists DTaP/Tdap/Td Vaccine (2 - Td or Tdap) 11/02/2029 11/02/2019 Pneumococcal vaccine 65+ Completed 015, 07/05/2015, 08/16/2013 Zoster Vaccine Discontinued 02/18/2024, 04/0 03/2023, 07/05/2015, Additional history exists Medical Devices Implanted Type Area Clinical Informatics Director Device Identifier Shelf Expiration Date Model / Serial / Lot [employer] Valve Aortic Trnscath Robin 3 Ultra Resilia 26mm [id number] - [id number] - [id number] Implanted:Qty: 1 on 05/08/2025 by Angie Montaño MD at [facility] Prosthetic Valve N/A: Aortic Valve [employer] [id number] 12/27/2026 [id number] / [id number] / [employer] System Closure Repair Femoral Artery Suture Mediated Perclose Prostyle 36540-60 - [id number] Implanted:Qty: 1 on 05/08/2025 by Angie Montaño MD at [facility] [employer] [id number] 03/17/2027 [id number] / / [employer] System Closure Repair Femoral Artery Suture Mediated Perclose Prostyle 70165-10 - [id number] Implanted:Qty: 1 on 05/08/2025 by Angie Montaño MD at [facility] [employer] [id number] 03/17/2027 [id number] / / [employer] Angio-Seal Vip 6fr Closere Device [id number] - [id number] Implanted:Qty: 1 on 05/08/2025 by Angie Montaño MD at [facility] Right: Common Femoral Artery [employer] [id number] 12/11/2025 [id number] / / [id number] Procedures Procedure Name Priority Date/Time Associated Diagnosis Comments TRANSTHORACIC ECHO (TTE) COMPLETE W DOPPLER/CF WO CONTRAST Routine 06/04/2025 3:09 PM CDT S/P TAVR (transcatheter aortic valve replacement) TRANSTHORACIC ECHO (TTE) COMPLETE W DOPPLER/CF WO CONTRAST Routine 05/09/2025 9:04 AM CDT ECG 12-LEAD Routine 05/09/2025 8:05 AM CDT XR CHEST 1 VIEW Routine 05/09/2025 5:40 AM CDT EGFR Routine 05/09/2025 3:17 AM CDT DIFFERENTIAL AUTO Routine 05/09/2025 3:1 7 AM CDT APTT Routine 05/09/2025 3:17 AM CDT PROTIME-INR Routine 05/09/2025 3:17 AM CDT CBC WITH AUTO DIFFERENTIAL Routine 05/09/2025 3:17 AM CDT COMPREHENSIVE METABOLIC PANEL Routine 05/09/2025 3:17 AM CDT PHOSPHORUS Routine 05/09/2025 3:17 AM CDT MAGNESIUM Routine 05/09/2025 3:17 AM CDT EGFR STAT 05/08/2025 12:24 PM CDT DIFFERENTIAL AUTO STAT 05/08/2025 12: 24 PM CDT THYROID FUNCTION CASCADE Routine 05/08/2025 12:24 PM CDT CBC WITH AUTO DIFFERENTIAL STAT 05/08/2025 12:24 PM CDT COMPREHENSIVE METABOLIC PANEL STAT 05/08/2025 12:24 PM CDT MAGNESIUM STAT 05/08/2025 12:24 PM CDT PHOSPHORUS STAT 05/08/2025 12:24 PM CDT XR CHEST 1 VIEW ED 05/08/2025 9:40 AM CDT ECG 12-LEAD STAT 05/08/2025 9:27 AM CDT TRANSCATHETER AORTIC VALVE REPLACEMENT (TAVR) OPEN FEMORAL ART APPROACH Routine 05/08/2025 9:18 AM CDT Severe aortic stenosis TRANSCATHETER AORTIC VALVE REPLACEMENT (TAVR) OPEN FEMORAL ART APPROACH Routine 05/08/2025 9:18 AM CDT Severe aortic stenosis POCT ACTIVATED CLOTTING TIME, LOW RANGE Routine 05/08/2025 8:36 AM CDT TN AN PROCEDURE PLACEHOLDER Routine 05/08/2025 7:53 AM CDT PREPARE RBC Timed 05/08/2025 7:03 AM CDT ANTIBODY SCREEN Timed 05/08/2025 6:23 AM CDT ABO/RH Timed 05/08/2025 6:23 AM CDT TYPE AND SCREEN Timed 05/08/2025 6:23 AM CDT from Last 3 Months Results * TRANSTHORACIC ECHO (TTE) COMPLETE W DOPPLER/CF WO CONTRAST (06/04/2025 3:09 PM CDT) EF Mod BP 57 % CONS SCIMAGE Anatomical Region Laterality Modality Ultrasound 06/04/2025 2:32 PM CDT Narrative 06/04/2025 5:28 PM CDT Transthoracic Echocardiographic Report Patient Name: LEE BORGES E : 1940 (84y 10m) Gender: M Study Date: 06/04/2025 02:32:06 PM Ht(Inch): 67 Wt(Lb): 152.01 BSA: 1.81 Electrical Laboratory Technician: Angelic Sandoval RDCS Order Provider: YUANMorganANGIE Heart Rate: 63 BMI: 23.81 BP: 125 / 72 Ref Provider: ANGEI MONTAÑO PROCEDURES: Echocardiographic Report: ([id number]) Transthoracic complete echo, 2D, spectral and tissue Doppler, color flow Doppler, M-mode. INDICATIONS: 26 mm Robin 3 Ultra valve, TAVR, and Z95.2 Presence of prosthetic heart valve. FINDINGS: Left Ventricle: Normal left ventricular cavity size. Mild concentric left ventricular hypertrophy. Normal left ventricular systolic function. The Ejection Fraction (Carpenter's) is measured at 57 %. Diastolic Function Left ventricular diastolic parameters are consistent with Grade I diastolic dysfunction (normal LA pressure). Right Ventricle: Normal right ventricular size. Normal right ventricular systolic function. Left Atrium: Mildly dilated left atrium. Right Atrium: The right atrium is normal in size. Atrial Septum: No shunt by color Doppler. Mitral Valve: There is mild to moderate mitral valve regurgitation. No mitral valve stenosis. Aortic Valve: The mean transaortic gradient is 8 mmHg. A bioprosthetic stent- valve is present in the aortic position. The aortic valve prosthesis appears well seated. There is no evidence of paravalvular aortic regurgitation. The aortic prosthesis demonstrates a normal transvalvular gradient for valve type and size. Tricuspid Valve: There is mild tricuspid regurgitation. Normal estimated pulmonary artery systolic pressure. No tricuspid valve stenosis. Pulmonic Valve: Pulmonic Valve not well visualized due to poor echo windows. Pericardium: No pericardial effusion noted. Aorta: Normal aortic root. The aortic Sinus is normal in size. IVC: IVC Not well visualized due to poor echo windows. CONCLUSIONS: 1. Normal left ventricular cavity size. Mild concentric left ventricular hypertrophy. Normal left ventricular systolic function. The Ejection Fraction (Carpenter's) is measured at 57 %. Diastolic Function Left ventricular diastolic parameters are consistent with Grade I diastolic dysfunction (normal LA pressure). 2. Normal right ventricular size. Normal right ventricular systolic function. 3. There is mild to moderate mitral valve regurgitation. No mitral valve stenosis. 4. The mean transaortic gradient is 8 mmHg. A bioprosthetic stent-valve is present in the aortic position. The aortic valve prosthesis appears well seated. There is no evidence of paravalvular aortic regurgitation. The aortic prosthesis demonstrates a normal transvalvular gradient for valve type and size. 5. There is mild tricuspid regurgitation. Normal estimated pulmonary artery systolic pressure. No tricuspid valve stenosis. MEASUREMENTS: 2D/MM Value Range Doppler Value LVIDd 2D 4.25 cm [ 3.50 - 5.70 ] AV Peak Michael 2.01 m/s LVIDs 2D 3.13 cm [ 3.10 - 4.60 ] AV Peak PG 16.16 mmHg IVSd 2D 1.10 cm [ 0.60 - 1.20 ] AV Mean PG 8.00 mmHg LVPWd 2D 1.10 cm [ 0.60 - 1.10 ] AV VTI 40.20 cm LV Thickness Ratio 1.00 LVOT Peak Michael 1.01 m/s LV Mass 2D 162.44 g LVOT Peak PG 4.08 mmHg LV Mass Index 2D 89.75 g/m2 LVOT Mean PG 2.00 mmHg RWT 0.52 LVOT VTI 20.80 cm EDV Mod BP 87.50 ml [ 62.00 - 150.00 ] LVOT Diam 2.60 cm LV EDV Index 48.34 ml/m2 SV LVOT 110.00 cm3 ESV Mod BP 38.00 ml [ 21.00 - 61.00 ] PEGGY VTI 2.75 cm2 EF Mod BP 57 % [ 52 - 72 ] PEGGY Vmax 2.67 cm2 LA Dimension 2D 4.10 cm [ 1.90 - 4.00 ] LVOT/AV VTI 0.52 - Dimensionless index (DVI) LA Length 2C 5.27 cm MV E Peak Michael 0.66 m/s LA Length 4C 5.15 cm MV A Peak Michael 0.73 m/s LA Volume BP 42.80 ml MV E/A 0.90 ratio LA Volume Index 23.65 ml/m2 [ 16.00 - 34.00 ] MV Decel Time 190.00 msec AoR Diam 2D 2.80 cm [ 2.00 - 3.70 ] Med E` Michael 0.06 m/s Ao Root Index 1.55 cm/m2 [ 1.00 - 2.00 ] Lat E` Michael 0.08 m/s Average E/E` 942.86 TV Peak Michael 0.37 m/s TV Peak PG 0.55 mmHg RV S` 11.90 cm/sec TR Peak Michael 2.57 m/s TR Peak PG 26.4 mmHg PV Peak Michael 2.14 m/s PV Peak PG 18.32 mmHg - ATTESTATION: I have reviewed and interpreted the pertinent images and measurements of this study. I attest to the conclusions in the final report that is provided above. DISCLAIMER: The study images and the final report will be retained in the patient chart by the [facility] Laboratory for the legally required time period. This chart constitutes the legal record of any testing performed. Electronically Signed By: Angie Montaño MD [facility] 06/04/2025 5:28:04 PM CDT Procedure Note Angie Montaño MD - 06/04/2025 Transthoracic Echocardiographic Report Patient Name: LEE BORGES E : 1940 (84y 10m) Gender: M Study Date: 06/04/2025 02:32:06 PM Ht(Inch): 67 Wt(Lb): 152.01 BSA: 1.81 Electrical Laboratory Technician: Angelic Sandoval RDCS Order Provider: ANGIE MONTAÑO Heart Rate: 63 BMI: 23.81 BP: 125 / 72 Ref Provider: ANGIE MONTAÑO PROCEDURES: Echocardiographic Report: ([id number]) Transthoracic complete echo, 2D,spectral and tissue Doppler, color flow Doppler, M-mode. 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 FINDINGS: Left Ventricle: Normal left ventricular cavity size. Mild concentric leftventricular hypertrophy. Normal left ventricular systolic function. The EjectionFraction (Carpenter's) is measured at 57 %. Diastolic Function Left ventricular diastolicparameters are consistent with Grade I diastolic dysfunction (normal LA pressure). Right Ventricle: Normal right ventricular size. Normal right ventricularsystolic function. Left Atrium: Mildly dilated left atrium. Right Atrium: The right atrium is normal in size. Atrial Septum: No shunt by color Doppler. Mitral Valve: There is mild to moderate mitral valve regurgitation. Nomitral valve stenosis. Aortic Valve: The mean transaortic gradient is 8 mmHg. A bioprostheticstent- valve is present in the aortic position. The aortic valve prosthesis appears wellseated. There is no evidence of paravalvular aortic regurgitation. The aortic prosthesisdemonstrates a normal transvalvular gradient for valve type and size. Tricuspid Valve: There is mild tricuspid regurgitation. Normal estimatedpulmonary artery systolic pressure. No tricuspid valve stenosis. Pulmonic Valve: Pulmonic Valve not well visualized due to poor echowindows. Pericardium: No pericardial effusion noted. Aorta: Normal aortic root. The aortic Sinus is normal in size. IVC: IVC Not well visualized due to poor echo windows. CONCLUSIONS: 1. Normal left ventricular cavity size. Mild concentric left ventricularhypertrophy. Normal left ventricular systolic function. The Ejection Fraction(Carpenter's) is measured at 57 %. Diastolic Function Left ventricular diastolic parameters areconsistent with Grade I diastolic dysfunction (normal LA pressure). 2. Normal right ventricular size. Normal right ventricular systolicfunction. 3. There is mild to moderate mitral valve regurgitation. No mitral valvestenosis. 4. The mean transaortic gradient is 8 mmHg. A bioprosthetic stent-valve ispresent in the aortic position. The aortic valve prosthesis appears well seated. There isno evidence of paravalvular aortic regurgitation. The aortic prosthesis demonstrates anormal transvalvular gradient for valve type and size. 5. There is mild tricuspid regurgitation. Normal estimated pulmonaryartery systolic pressure. No tricuspid valve stenosis. MEASUREMENTS: 2D/MM Value Range DopplerValue LVIDd 2D 4.25 cm [ 3.50 - 5.70 ] AV Peak Vel2.01 m/s LVIDs 2D 3.13 cm [ 3.10 - 4.60 ] AV Peak PG16.16 mmHg IVSd 2D 1.10 cm [ 0.60 - 1.20 ] AV Mean PG8.00 mmHg LVPWd 2D 1.10 cm [ 0.60 - 1.10 ] AV VTI40.20 cm LV Thickness Ratio 1.00 LVOT Peak Vel1.01 m/s LV Mass 2D 162.44 g LVOT Peak PG4.08 mmHg LV Mass Index 2D 89.75 g/m2 LVOT Mean PG2.00 mmHg RWT 0.52 LVOT VTI20.80 cm EDV Mod BP 87.50 ml [ 62.00 - 150.00 ] LVOT Diam2.60 cm LV EDV Index 48.34 ml/m2 SV VPIG541.00 cm3 ESV Mod BP 38.00 ml [ 21.00 - 61.00 ] PEGGY VTI2.75 cm2 EF Mod BP 57 % [ 52 - 72 ] PEGGY Vmax2.67 cm2 LA Dimension 2D 4.10 cm [ 1.90 - 4.00 ] LVOT/AV VTI0.52 - Dimensionless index (DVI) LA Length 2C 5.27 cm MV E Peak Vel0.66 m/s LA Length 4C 5.15 cm MV A Peak Vel0.73 m/s LA Volume BP 42.80 ml MV E/A0.90 ratio LA Volume Index 23.65 ml/m2 [ 16.00 - 34.00 ] MV Decel Hjbi635.00 msec AoR Diam 2D 2.80 cm [ 2.00 - 3.70 ] Med E` Vel0.06 m/s Ao Root Index 1.55 cm/m2 [ 1.00 - 2.00 ] Lat E` Vel0.08 m/s Average E/E` 942.86 TV Peak Michael 0.37 m/s TV Peak PG 0.55 mmHg RV S` 11.90 cm/sec TR Peak Michael 2.57 m/s TR Peak PG 26.4 mmHg PV Peak Michael 2.14 m/s PV Peak PG 18.32 mmHg - ATTESTATION: I have reviewed and interpreted the pertinent images and measurements ofthis study. I attest to the conclusions in the final report that is provided above. DISCLAIMER: The study images and the final report will be retained in the patientchart by the Echo Laboratory for the legally required time period. This chart constitutesthe legal record of any testing performed. Electronically Signed By: Angie Montaño MD [facility] 06/04/2025 5:28:04 PM CDT us Angie Montaño MD CV ECHO PROCEDURES Final Re sult * TRANSTHORACIC ECHO (TTE) COMPLETE W DOPPLER/CF WO CONTRAST (05/09/2025 9:04 AM CDT) EF Mod BP 72 % CONS SCIMAGE Anatomical Region Laterality Modality Ultrasound 05/09/2025 8:29 AM CDT Narrative 05/09/2025 11:25 AM CDT Transthoracic Echocardiographic Report Patient Name: LEE BORGES E : 1940 (84y 9m) Gender: M Study Date: 05/09/2025 08:29:13 AM Ht(Inch): 67 Wt(Lb): 152.01 BSA: 1.81 Electrical Laboratory Technician: Angelic Sandoval RDCS Location: [id number] Order Provider: ANGIE MONTAÑO Heart Rate: 78 BMI: 23.81 BP: 129 / 77 Ref Provider: ANGIE MONTAÑO PROCEDURES: Echocardiographic Report: ([id number]) Transthoracic complete echo, 2D, spectral and tissue Doppler, color flow Doppler, M-mode. INDICATIONS: Aortic Stenosis and TAVR. FINDINGS: Left Ventricle: Normal left ventricular cavity size. Normal Left ventricular wall thickness. Normal left ventricular systolic function. The Ejection Fraction (Carpenter's) is measured at 72 %. Right Ventricle: Normal right ventricular size. Normal right ventricular systolic function. Left Atrium: Mildly dilated left atrium. Right Atrium: The right atrium is normal in size. Atrial Septum: Interatrial Septum is not well visualized due to poor echo windows. Mitral Valve: Normal mitral valve leaflet structure. Aortic Valve: No aortic valve stenosis. The mean transaortic gradient is 8 mmHg. The aortic valve area by the continuity equation (using VTI) is 3.19 cm2. The aortic valve area by the continuity equation (using Peak Michael) is 2.97 cm2. A bioprosthetic stent-valve is present in the aortic position. There is no evidence of paravalvular aortic regurgitation. Tricuspid Valve: The tricuspid valve demonstrates normal leaflet structure. Pulmonic Valve: Pulmonic Valve not well visualized due to poor echo windows. Pericardium: No pericardial effusion noted. Aorta: Normal aortic root. The aortic Sinus is normal in size. IVC: IVC Not well visualized due to poor echo windows. CONCLUSIONS: 1. Normal left ventricular cavity size. Normal Left ventricular wall thickness. Normal left ventricular systolic function. The Ejection Fraction (Carpenter's) is measured at 72 %. 2. No aortic valve stenosis. The mean transaortic gradient is 8 mmHg. The aortic valve area by the continuity equation (using VTI) is 3.19 cm2. The aortic valve area by the continuity equation (using Peak Michael) is 2.97 cm2. A bioprosthetic stent-valve is present in the aortic position. There is no evidence of paravalvular aortic regurgitation. MEASUREMENTS: 2D/MM Value Range Doppler Value LVIDd 2D 4.41 cm [ 3.50 - 5.70 ] AV Peak Michael 2.07 m/s LVIDs 2D 2.59 cm [ 3.10 - 4.60 ] AV Peak PG 17.14 mmHg IVSd 2D 0.82 cm [ 0.60 - 1.20 ] AV Mean PG 8.00 mmHg LVPWd 2D 0.95 cm [ 0.60 - 1.10 ] AV VTI 38.60 cm LV Thickness Ratio 0.86 LVOT Peak Michael 1.16 m/s LV Mass 2D 128.36 g LVOT Peak PG 5.38 mmHg LV Mass Index 2D 70.92 g/m2 LVOT Mean PG 3.00 mmHg RWT 0.43 LVOT VTI 23.20 cm EDV Mod BP 78.40 ml [ 62.00 - 150.00 ] LVOT Diam 2.60 cm LV EDV Index 43.31 ml/m2 SV LVOT 123.00 cm3 ESV Mod BP 22.20 ml [ 21.00 - 61.00 ] PEGGY VTI 3.19 cm2 EF Mod BP 72 % [ 52 - 72 ] PEGGY Vmax 2.97 cm2 LA Dimension 2D 3.70 cm [ 1.90 - 4.00 ] LVOT/AV VTI 0.60 - Dimensionless index (DVI) LA Length 2C 6.24 cm MV E Peak Michael 0.61 m/s LA Length 4C 6.28 cm MV A Peak Michael 0.78 m/s LA Volume BP 66.00 ml MV E/A 0.80 ratio LA Volume Index 36.46 ml/m2 [ 16.00 - 34.00 ] MV Decel Time 312.00 msec AoR Diam 2D 2.40 cm [ 2.00 - 3.70 ] Med E` Michael 0.06 m/s Ao Root Index 1.33 cm/m2 [ 1.00 - 2.00 ] Lat E` Michael 0.08 m/s Average E/E` 871.43 TV Peak Michael 0.35 m/s TV Peak PG 0.49 mmHg RV S` 14.60 cm/sec TR Peak Michael 2.82 m/s TR Peak PG 31.8 mmHg PV Peak Michael 1.91 m/s PV Peak PG 14.59 mmHg - ATTESTATION: I have reviewed and interpreted the pertinent images and measurements of this study. I attest to the conclusions in the final report that is provided above. DISCLAIMER: The study images and the final report will be retained in the patient chart by the Echo Laboratory for the legally required time period. This chart constitutes the legal record of any testing performed. Electronically Signed By: Angie Montaño MD [facility] 05/09/2025 11:24:58 AM CDT Procedure Note Angie Montaño MD - 05/09/2025 Transthoracic Echocardiographic Report Patient Name: LEE BORGES E : 1940 (84y 9m) Gender: M Study Date: 05/09/2025 08:29:13 AM Ht(Inch): 67 Wt(Lb): 152.01 BSA: 1.81 Electrical Laboratory Technician: Angelic Sandoval RDCS Location: [id number] Order Provider: ANGIE MONTAÑO Heart Rate: 78 BMI: 23.81 BP: 129 / 77 Ref Provider: ANGIE MONTAÑO PROCEDURES: Echocardiographic Report: ([id number]) Transthoracic complete echo, 2D,spectral and tissue Doppler, color flow Doppler, M-mode. INDICATIONS: Aortic Stenosis and TAVR. FINDINGS: Left Ventricle: Normal left ventricular cavity size. Normal Leftventricular wall thickness. Normal left ventricular systolic function. The EjectionFraction (Carpenter's) is measured at 72 %. Right Ventricle: Normal right ventricular size. Normal right ventricularsystolic function. Left Atrium: Mildly dilated left atrium. Right Atrium: The right atrium is normal in size. Atrial Septum: Interatrial Septum is not well visualized due to poor echowindows. Mitral Valve: Normal mitral valve leaflet structure. Aortic Valve: No aortic valve stenosis. The mean transaortic gradient is 8mmHg. The aortic valve area by the continuity equation (using VTI) is 3.19 cm2. Theaortic valve area by the continuity equation (using Peak Michael) is 2.97 cm2. Abioprosthetic stent-valve is present in the aortic position. There is no evidence of paravalvularaortic regurgitation. Tricuspid Valve: The tricuspid valve demonstrates normal leafletstructure. Pulmonic Valve: Pulmonic Valve not well visualized due to poor echowindows. Pericardium: No pericardial effusion noted. Aorta: Normal aortic root. The aortic Sinus is normal in size. IVC: IVC Not well visualized due to poor echo windows. CONCLUSIONS: 1. Normal left ventricular cavity size. Normal Left ventricular wallthickness. Normal left ventricular systolic function. The Ejection Fraction (Carpenter's) ismeasured at 72 %. 2. No aortic valve stenosis. The mean transaortic gradient is 8 mmHg. Theaortic valve area by the continuity equation (using VTI) is 3.19 cm2. The aortic valvearea by the continuity equation (using Peak Michael) is 2.97 cm2. A bioprostheticstent-valve is present in the aortic position. There is no evidence of paravalvular aorticregurgitation. MEASUREMENTS: 2D/MM Value Range DopplerValue LVIDd 2D 4.41 cm [ 3.50 - 5.70 ] AV Peak Vel2.07 m/s LVIDs 2D 2.59 cm [ 3.10 - 4.60 ] AV Peak PG17.14 mmHg IVSd 2D 0.82 cm [ 0.60 - 1.20 ] AV Mean PG8.00 mmHg LVPWd 2D 0.95 cm [ 0.60 - 1.10 ] AV VTI38.60 cm LV Thickness Ratio 0.86 LVOT Peak Vel1.16 m/s LV Mass 2D 128.36 g LVOT Peak PG5.38 mmHg LV Mass Index 2D 70.92 g/m2 LVOT Mean PG3.00 mmHg RWT 0.43 LVOT VTI23.20 cm EDV Mod BP 78.40 ml [ 62.00 - 150.00 ] LVOT Diam2.60 cm LV EDV Index 43.31 ml/m2 SV VHXO528.00 cm3 ESV Mod BP 22.20 ml [ 21.00 - 61.00 ] PEGGY VTI3.19 cm2 EF Mod BP 72 % [ 52 - 72 ] PEGGY Vmax2.97 cm2 LA Dimension 2D 3.70 cm [ 1.90 - 4.00 ] LVOT/AV VTI0.60 - Dimensionless index (DVI) LA Length 2C 6.24 cm MV E Peak Vel0.61 m/s LA Length 4C 6.28 cm MV A Peak Vel0.78 m/s LA Volume BP 66.00 ml MV E/A0.80 ratio LA Volume Index 36.46 ml/m2 [ 16.00 - 34.00 ] MV Decel Jgwl474.00 msec AoR Diam 2D 2.40 cm [ 2.00 - 3.70 ] Med E` Vel0.06 m/s Ao Root Index 1.33 cm/m2 [ 1.00 - 2.00 ] Lat E` Vel0.08 m/s Average E/E` 871.43 TV Peak Michael 0.35 m/s TV Peak PG 0.49 mmHg RV S` 14.60 cm/sec TR Peak Michael 2.82 m/s TR Peak PG 31.8 mmHg PV Peak Michael 1.91 m/s PV Peak PG 14.59 mmHg - ATTESTATION: I have reviewed and interpreted the pertinent images and measurements ofthis study. I attest to the conclusions in the final report that is provided above. DISCLAIMER: The study images and the final report will be retained in the patientchart by the [facility] Laboratory for the legally required time period. This chart constitutesthe legal record of any testing performed. Electronically Signed By: Angie Montñao MD [facility] 05/09/2025 11:24:58 AM CDT Angie Montñao MD CV ECHO PROCEDURES Final Re sult * ECG 12 lead (05/09/2025 8:05 AM CDT) Ventricular Rate EKG/Min 59 BPM [facility] Atrial Rate 59 BPM [facility] TN-Interval (MSEC) 258 ms [facility] QRS-Interval (MSEC) 134 ms [facility] QT-Interval (MSEC) 436 ms [facility] QTc 431 ms [facility] P Sabael 25 degrees [facility] R Sabael 3 degrees [facility] T Sabael 7 degrees [facility] Diagnosis Sinus bradycardia with 1st degree A-V block Right bundle branch block Abnormal ECG When compared with ECG of 08-MAY-2025 09:27, No significant change was found Confirmed by PASCALE SUAREZ M.D. ([id number]) on 05/09/2025 10:53:40 PM [facility] 05/09/2025 8:05 AM CDT 05/09/2025 10:53 PM CDT us Angie Montaño MD ECG ORDERABLES Final Resul t [facility] * X-ray chest 1 view (Portable) (05/09/2025 5:40 AM CDT) Anatomical Region Laterality Modality Body, Chest N/A Computed Radiogr aphy 05/09/2025 10:1 4 AM CDT Narrative 05/09/2025 10:15 AM CDT EXAM DESCRIPTION: XR CHEST 1 VIEW REASON FOR STUDY: Venous obstruction, chest, post aortic valve replacement - TAVR Post op TAVR 05/08/25. Daily. TECHNIQUE: Single radiographic view(s) of the chest. COMPARISON: 05/08/2025 FINDINGS: LUNGS: There is mild pulmonary edema. No sizable pleural effusion or pneumothorax. HEART/MEDIASTINUM: Unchanged LINES/TUBES: TAVR BONES: No acute osseous abnormality. IMPRESSION: Mild pulmonary edema. THIS IS AN ELECTRONICALLY VERIFIED FINAL REPORT 05/09/2025 10:15 AM - Electronically signed by Oscar Davis M.D. AM T: Report ID: [id number] Reading Location: [id number] Procedure Note Oscar Davis MD - 05/09/2025 EXAM DESCRIPTION: XR CHEST 1 VIEW REASON FOR STUDY: Venous obstruction, chest, post aortic valve replacement- TAVR Post op TAVR 05/08/25. Daily. TECHNIQUE: Single radiographic view(s) of the chest. COMPARISON: 05/08/2025 FINDINGS: LUNGS: There is mild pulmonary edema. No sizable pleuraleffusion or pneumothorax. HEART/MEDIASTINUM: Unchanged LINES/TUBES: TAVR BONES: No acute osseous abnormality. IMPRESSION: Mild pulmonary edema. THIS IS AN ELECTRONICALLY VERIFIED FINAL REPORT 05/09/2025 10:15 AM - Electronically signed by Oscar Davis M.D. AM T: Report ID: [id number] Reading Location: [place] [id number] Angie Montaño MD IMG XR PROCEDURES Final Res ult * eGFR (05/09/2025 3:17 AM CDT) eGFR 87 >=60 mL/min/1. 73 m2 Comment: Interpretive Data Reference Interval Normal >/= 90 mL/min/1.73m2 Mildly decreased* 60 - 89 mL/min/1.73m2 Mildly to moderately decreased 45 - 59 mL/min/1.73m2 Moderately to severely decreased 30 - 44 mL/min/1.73m2 Severely decreased 15 - 29 mL/min/1.73m2 Kidney Failure < 15 mL/min/1.73m2 *Relative to young adult level Estimated glomerular filtration rate is determined by the 2020 CKD-EPI equation recommended by the National Kid[employer] (A Unifying Approach to GFR Estimation: Recommendations of the NKF-ASK Task Force on Reassessing the Inclusion of Race in Diagnosing Kidney Disease, JASN 2020). The CKD-EPI equation should not be used for patients with unstable renal function and has not been validated in children and those over 70. Current interpretive data was last reviewed 2021. Blood 05/09/2025 3:17 AM CDT 05/09/2025 3:21 AM CDT Angie Montaño MD LAB BLOOD ORDERABLES Final Result [facility] Department [place] [address] * (ABNORMAL) Differential, auto (05/09/2025 3:17 AM CDT) Pathologist [facility] Neutrophil abs 8.80(H) 1.50 - 6.50 K/cumm Imm gran abs 0.02 0.00 - 0.10 K/cumm [facility] Lymphocyte abs 1.33 0.80 - 3.30 K/cumm [facility] Monocyte abs 1.29(H) 0.20 - 0.80 K/cumm [facility] Eosinophil abs 0.11 0.00 - 0.50 K/cumm [facility] Basophil abs 0.05 0.00 - 0.10 K/cumm [facility] Neutrophil pct 75.9 % [facility] Comment: Interpretive Data Percent cell count reference ranges are not reported, since discordance with absolute values may lead to misinterpretation of CBC data. Current Interpretive Data was last revised on 2018. Imm gran pct 0.2 % [facility] Comment: Interpretive Data Percent cell count reference ranges are not reported, since discordance with absolute values may lead to misinterpretation of CBC data. Current Interpretive Data was last revised on 2018. Lymphocyte pct 11.5 % [facility] Comment: Interpretive Data Percent cell count reference ranges are not reported, since discordance with absolute values may lead to misinterpretation of CBC data. Current Interpretive Data was last revised on 2018. Monocyte pct 11.1 % [facility] Comment: Interpretive Data Percent cell count reference ranges are not reported, since discordance with absolute values may lead to misinterpretation of CBC data. Current Interpretive Data was last revised on 2018. Eosinophil pct 0.9 % [facility] Comment: Interpretive Data Percent cell count reference ranges are not reported, since discordance with absolute values may lead to misinterpretation of CBC data. Current Interpretive Data was last revised on 2018. Basophil pct 0.4 % [facility] Comment: Interpretive Data Percent cell count reference ranges are not reported, since discordance with absolute values may lead to misinterpretation of CBC data. Current Interpretive Data was last revised on 2018. Blood 05/09/2025 3:17 AM CDT 05/09/2025 3:21 AM CDT Angie Montaño MD LAB BLOOD ORDERABLES Final Result Performing Organization Address [facility] Co de Phone Number JUDY [address] [address] * (ABNORMAL) CBC with auto differential (05/09/2025 3:17 AM CDT) WBC 11.60(H) 3.80 - 9.90 K/cumm Hgb 14.1 13.0 - 17.5 g/dL [facility] Hct 41.6 38.9 - 50.3 % [facility] Plt 200 150 - 400 K/cumm [facility] MPV 8.8(L) 9.1 - 12.3 fL [facility] RBC 4.62 4.30 - 5.80 M/cumm [facility] MCV 90.0 81.3 - 96.4 fL [facility] MCH 30.5 27.1 - 33.3 pg [facility] MCHC 33.9 32.3 - 35.7 g/dL [facility] RDW CV 12.5 11.1 - 14.9 % [facility] RDW SD 40.9 35.7 - 48.1 fL [facility] NRBC abs 0.00 0.00 - 0.01 K/cumm [facility] Blood 05/09/2025 3:17 AM CDT 05/09/2025 3:21 AM CDT Angie Montaño MD LAB BLOOD ORDERABLES Final Result Performing Organization Address [facility] Co de Phone Number JUDY [address] [address] * aPTT (05/09/2025 3:17 AM CDT) Pathologist [facility] aPTT 32 22 - 37 sec Comment: Interpretive data aPTT test has not been evaluated for monitoring heparin therapy. The anti-Xa is the preferred test. Current interpretive data was last revised on 2019. Blood 05/09/2025 3:17 AM CDT 05/09/2025 3:21 AM CDT Angie Montaño MD LAB BLOOD ORDERABLES Final Result Performing Organization Address [facility] Co de Phone Number JUDY [address] [place] [address] * (ABNORMAL) Protime-INR (05/09/2025 3:17 AM CDT) PT 15.20(H) 12.00 - 14.60 sec Comment:Ref Range High INR 1.19 0.90 - 1.20 [facility] Comment: Ref Range High Interpretive data Oral anticoagulant therapeutic ranges: Venous thromboembolism prophylaxis or treatment: 2.0-3.0 CARDIOLOGY Standard range: 2.0-3.0 High-intensity range: 2.5-3.5 Refer to indication-specific guidelines for appropriate target ranges for prosthetic heart valve replacement. Current interpretive data was last revised on 2019. Blood 05/09/2025 3:17 AM CDT 05/09/2025 3:21 AM CDT Angie Montaño MD LAB BLOOD ORDERABLES Final Result Performing Organization Address [facility] de Phone Number [address] [place] [address] * Phosphorus (05/09/2025 3:17 AM CDT) Pathologist [facility] Phosphorus, pl 3.5 2.3 - 4.5 mg/dL Blood 05/09/2025 3:17 AM CDT 05/09/2025 3:21 AM CDT Liz Larios NP LAB BLOOD ORDERABLES Final R esult Performing Organization Address [facility] Co de Phone Number SAMAN[address] [place] [address] * Magnesium (05/09/2025 3:17 AM CDT) Pathologist [facility] Magnesium 2.3 1.4 - 2.5 mg/dL Blood 05/09/2025 3:17 AM CDT 05/09/2025 3:21 AM CDT Liz Larios [facility] [employer] LAB BLOOD ORDERABLES Final R esult [facility] [address] [facility] Department [place] [address] * Comprehensive metabolic panel (05/09/2025 3:17 AM CDT) Pathologist [facility] Sodium 140 135 - 145 mmol/L Potassium, pl 3.7 3.3 - 4.9 mmol/L [facility] Chloride 106 97 - 110 mmol/L [facility] CO2 24 22 - 32 mmol/L [facility] Anion gap 10 2 - 15 mmol/L [facility] BUN 23 6 - 25 mg/dL [facility] Creatinine 0.84 0.80 - 1.30 mg/dL [facility] Glucose 105 70 - 199 mg/dL [facility] Comment: Interpretive Data Fasting glucose >/= 126 mg/dl is diagnostic for diabetes. Fasting is defined as no caloric intake for at least 8 hours. Fasting glucose between 100 mg/dl to 125 mg/dl is diagnostic of prediabetes. In a patient with classic symptoms of hyperglycemia or hyperglycemic crisis, a random glucose >/= 200 mg/dl is diagnostic for diabetes. In the absence of unequivocal hyperglycemia, results should be confirmed by repeat testing. The classification and Diagnosis of Diabetes Diabetes Care 202; 46: S19-S40. Current interpretive data was last revised 2022. Calcium 8.9 8.5 - 10.3 mg/dL [facility] Bilirubin, total 1.0 0.1 - 1.2 mg/dL [facility] Protein, pl 6.5 6.5 - 8.5 g/dL [facility] Albumin 3.7 3.5 - 5.0 g/dL [facility] Alk phos 83 40 - 130 Units/L [facility] ALT 14 7 - 55 Units/L [facility] AST 24 10 - 50 Units/L [facility] Blood 05/09/2025 3:17 AM CDT 05/09/2025 3:21 AM CDT Angie Montaño MD LAB BLOOD ORDERABLES Final Result Performing Organization Address [facility] Co de Phone Number JUDY [address] [place] [address] * eGFR (05/08/2025 12:24 PM CDT) Pathologist [facility] eGFR 87 >=60 mL/min/1. 73 m2 Comment: Interpretive Data Reference Interval Normal >/= 90 mL/min/1.73m2 Mildly decreased* 60 - 89 mL/min/1.73m2 Mildly to moderately decreased 45 - 59 mL/min/1.73m2 Moderately to severely decreased 30 - 44 mL/min/1.73m2 Severely decreased 15 - 29 mL/min/1.73m2 Kidney Failure < 15 mL/min/1.73m2 *Relative to young adult level Estimated glomerular filtration rate is determined by the 2020 CKD-EPI equation recommended by the National Kid[employer] (A Unifying Approach to GFR Estimation: Recommendations of the NKF-ASK Task Force on Reassessing the Inclusion of Race in Diagnosing Kidney Disease, JASN 2020). The CKD-EPI equation should not be used for patients with unstable renal function and has not been validated in children and those over 70. Current interpretive data was last reviewed 2021. Blood 05/08/2025 12:2 4 PM CDT 05/08/2025 12:29 PM CDT us Liz Larios NP LAB BLOOD ORDERABLES Final R esult Performing Organization Address City/[facility]/ZIP Co de Phone Number JUDY [address] [place] [address] * (ABNORMAL) Differential, auto (05/08/2025 12:24 PM CDT) Pathologist [facility] Neutrophil abs 7.00(H) 1.50 - 6.50 K/cumm Imm gran abs 0.04 0.00 - 0.10 K/cumm [facility] Lymphocyte abs 1.52 0.80 - 3.30 K/cumm [facility] Monocyte abs 0.91(H) 0.20 - 0.80 K/cumm [facility] Eosinophil abs 0.16 0.00 - 0.50 K/cumm [facility] Basophil abs 0.05 0.00 - 0.10 K/cumm [facility] Neutrophil pct 72.3 % [facility] Comment: Interpretive Data Percent cell count reference ranges are not reported, since discordance with absolute values may lead to misinterpretation of CBC data. Current Interpretive Data was last revised on 2018. Imm gran pct 0.4 % [facility] Comment: Interpretive Data Percent cell count reference ranges are not reported, since discordance with absolute values may lead to misinterpretation of CBC data. Current Interpretive Data was last revised on 2018. Lymphocyte pct 15.7 % [facility] Comment: Interpretive Data Percent cell count reference ranges are not reported, since discordance with absolute values may lead to misinterpretation of CBC data. Current Interpretive Data was last revised on 2018. Monocyte pct 9.4 % [facility] Comment: Interpretive Data Percent cell count reference ranges are not reported, since discordance with absolute values may lead to misinterpretation of CBC data. Current Interpretive Data was last revised on 2018. Eosinophil pct 1.7 % [facility] Comment: Interpretive Data Percent cell count reference ranges are not reported, since discordance with absolute values may lead to misinterpretation of CBC data. Current Interpretive Data was last revised on 2018. Basophil pct 0.5 % [facility] Comment: Interpretive Data Percent cell count reference ranges are not reported, since discordance with absolute values may lead to misinterpretation of CBC data. Current Interpretive Data was last revised on 2018. Blood 05/08/2025 12:2 4 PM CDT 05/08/2025 12:29 PM CDT us Liz Larios HOSPICE SUPERINTENDENT LAB BLOOD ORDERABLES Final R esult JUDY [address] Department [place] [address] * Thyroid Function [place] (05/08/2025 12:24 PM CDT) [facility] TSH 3.04 0.30 - 4.20 mcIUnit/mL Blood 05/08/2025 12:2 4 PM CDT 05/08/2025 12:29 PM CDT Liz Larios HOSPICE SUPERINTENDENT LAB BLOOD ORDERABLES Final R esult Performing Organization Address City/[facility]/ZIP Co de Phone Number [address] [place] [address] * (ABNORMAL) CBC with auto differential (05/08/2025 12:24 PM CDT) [facility] WBC 9.68 3.80 - 9.90 K/cumm Hgb 15.0 13.0 - 17.5 g/dL [facility] Hct 45.0 38.9 - 50.3 % [facility] Plt 207 150 - 400 K/cumm [facility] MPV 8.7(L) 9.1 - 12.3 fL [facility] RBC 4.91 4.30 - 5.80 M/cumm [facility] MCV 91.6 81.3 - 96.4 fL [facility] MCH 30.5 27.1 - 33.3 pg [facility] MCHC 33.3 32.3 - 35.7 g/dL [facility] RDW CV 12.7 11.1 - 14.9 % [facility] RDW SD 42.1 35.7 - 48.1 fL [facility] NRBC abs 0.00 0.00 - 0.01 K/cumm [facility] Blood 05/08/2025 12:2 4 PM CDT 05/08/2025 12:29 PM CDT Liz Larios HOSPICE SUPERINTENDENT LAB BLOOD ORDERABLES Final R esult Performing Organization Address City/[facility]/ZIP Co de Phone Number [address] [place] [address] * Phosphorus (05/08/2025 12:24 PM CDT) [facility] Phosphorus, pl 3.9 2.3 - 4.5 mg/dL Blood 05/08/2025 12:2 4 PM CDT 05/08/2025 12:29 PM CDT Liz Larios HOSPICE SUPERINTENDENT LAB BLOOD ORDERABLES Final R esult Performing Organization Address [facility] de Phone Number [address] [address] * Magnesium (05/08/2025 12:24 PM CDT) Pathologist [facility] Magnesium 2.3 1.4 - 2.5 mg/dL Blood 05/08/2025 12:2 4 PM CDT 05/08/2025 12:29 PM CDT Braxtonannamariegurpreet Larios HOSPICE SUPERINTENDENT LAB BLOOD ORDERABLES Final R esult Performing Organization Address [facility] de Phone Number [address] [address] * Comprehensive metabolic panel (05/08/2025 12:24 PM CDT) Pathologist [facility] Sodium 140 135 - 145 mmol/L Potassium, pl 3.9 3.3 - 4.9 mmol/L [facility] Chloride 106 97 - 110 mmol/L [facility] CO2 25 22 - 32 mmol/L [facility] Anion gap 9 2 - 15 mmol/L [facility] BUN 18 6 - 25 mg/dL [facility] Creatinine 0.84 0.80 - 1.30 mg/dL [facility] Glucose 95 70 - 199 mg/dL [facility] Comment: Interpretive Data Fasting glucose >/= 126 mg/dl is diagnostic for diabetes. Fasting is defined as no caloric intake for at least 8 hours. Fasting glucose between 100 mg/dl to 125 mg/dl is diagnostic of prediabetes. In a patient with classic symptoms of hyperglycemia or hyperglycemic crisis, a random glucose >/= 200 mg/dl is diagnostic for diabetes. In the absence of unequivocal hyperglycemia, results should be confirmed by repeat testing. The classification and Diagnosis of Diabetes Diabetes Care 2021; 46: S19-S40. Current interpretive data was last revised 2022. Calcium 9.1 8.5 - 10.3 mg/dL [facility] Bilirubin, total 1.0 0.1 - 1.2 mg/dL [facility] Protein, pl 6.6 6.5 - 8.5 g/dL [facility] Albumin 3.9 3.5 - 5.0 g/dL [facility] Alk phos 86 40 - 130 Units/L [facility] ALT 16 7 - 55 Units/L [facility] AST 27 10 - 50 Units/L [facility] Blood 05/08/2025 12:2 4 PM CDT 05/08/2025 12:29 PM CDT us Liz Larios NP LAB BLOOD ORDERABLES Final R esult [facility] [address] Department [place] [address] * X-ray chest 1 view (Portable) (05/08/2025 9:40 AM CDT) Anatomical Region Laterality Modality Body, Chest N/A Computed Radiogr aphy 05/08/2025 4:06 PM CDT Narrative 05/08/2025 4:09 PM CDT EXAM DESCRIPTION: XR CHEST 1 VIEW REASON FOR STUDY: Venous obstruction, chest, post aortic valve replacement - TAVR S/P TAVR procedure in OR Hybrid room today TECHNIQUE: Single frontal portable supine radiographic view(s) of the chest. COMPARISON: Chest radiograph dated 04/23/2025. TAVR planning CT dated 03/23/2025. FINDINGS: Lung volumes are small with bronchovascular crowding. There is pulmonary vascular congestion. Retrocardiac patchy airspace opacity. No large layering pleural effusion. Evaluation for pneumothorax is limited on this supine view. Cardiomediastinal silhouette is similar in size. Status post TAVR. Osseous structures are diffusely demineralized. IMPRESSION: 1. Status post TAVR when compared to the previous chest radiograph dated 04/23/2025. 2. Retrocardiac airspace opacity, atelectasis and/or pneumonic consolidation. 3. Pulmonary vascular congestion. THIS IS AN ELECTRONICALLY VERIFIED FINAL REPORT 05/08/2025 4:09 PM - Electronically signed by Morgan Wright D.O. AP T: Report ID: [id number] Reading Location: [place] [address] Procedure Note Morgan Wright, DO - 05/08/2025 EXAM DESCRIPTION: XR CHEST 1 VIEW REASON FOR STUDY: Venous obstruction, chest, post aortic valve replacement- TAVR S/P TAVR procedure in OR Hybrid room today TECHNIQUE: Single frontal portable supine radiographic view(s) of thechest. COMPARISON: Chest radiograph dated 04/23/2025. TAVR planning CT dated 03/23/2025. FINDINGS: Lung volumes are small with bronchovascular crowding. There is pulmonary vascular congestion. Retrocardiac patchy airspace opacity. No large layering pleural effusion. Evaluation for pneumothorax is limitedon this supine view. Cardiomediastinal silhouette is similar in size.Status post TAVR. Osseous structures are diffusely demineralized. IMPRESSION: 1. Status post TAVR when compared to the previous chest radiograph dated 04/23/2025. 2. Retrocardiac airspace opacity, atelectasis and/or pneumonic consolidation. 3. Pulmonary vascular congestion. THIS IS AN ELECTRONICALLY VERIFIED FINAL REPORT 05/08/2025 4:09 PM - Electronically signed by Morgan Wright D.O. AP T: Report ID: [id number] Reading Location: [place] [address] us Angie Montaño MD IMG XR PROCEDURES Final Res ult * ECG 12 lead (05/08/2025 9:27 AM CDT) Ventricular Rate EKG/Min 67 BPM [facility] Atrial Rate 67 BPM [facility] TN-Interval (MSEC) 260 ms [facility] QRS-Interval (MSEC) 136 ms [facility] QT-Interval (MSEC) 410 ms [facility] QTc 433 ms [facility] P Sabael 32 degrees [facility] R Sabael 34 degrees [facility] T Sabael -7 degrees [facility] Diagnosis Sinus rhythm with 1st degree A-V block Right bundle branch block T wave abnormality, consider inferior ischemia Abnormal ECG When compared with ECG of 23-APR-2025 08:54, T wave inversion now evident in Inferior leads T wave inversion more evident in Anterior leads Confirmed by NICOLE HILL M.D. ([id number]) on 05/09/2025 6:36:18 AM [facility] 05/08/2025 9:27 AM CDT 05/09/2025 6:36 AM CDT us Angie Montaño MD ECG ORDERABLES Final Resul t [facility] * TRANSCATHETER AORTIC VALVE REPLACEMENT (TAVR) OPEN FEMORAL ART APPROACH, TRANSCATHETER AORTIC VALVEREPLACEMENT (TAVR) OPEN FEMORAL ART APPROACH (05/08/2025 9:18 AM CDT) Anatomical Region Laterality Modality X-Ray Angiograph y Narrative 05/08/2025 9:35 AM CDT IMPLANTATION OF CATHETER DERIVED PROSTHETIC AORTIC HEART VALVE; TRANSFEMORAL APPROACH Patient Name: Lee Borges : 1940 Date of Procedure: 05/08/25 Indication: Symptomatic severe aortic valve stenosis History: Lee Borges is a 84 y.o. old male with symptomatic severe aortic valve stenosis and multiple comorbidities. Patient was recommended TAVR based on the decision of the heart team including independent [id number] evaluation of the patient by cardiothoracic surgeon and cost accountant. Procedure: Transcatheter aortic valve implantation with Ordoñez S3 26 Transcatheter Heart Valve Anesthesia -- MAC Operators: Angie Montaño MD, Malik Kessler MD Description of the Procedure: The patient was brought to the hybrid cardiac catheterization suite in a fasting state. Informed consent was obtained after the discussion of risk, benefits and alternatives. After an initial time out process, Anesthesia was administered by anesthesia service. Pre-Op antibiotic IV ancef 2 gm was given. The patient was prepped and draped in the usual sterile fashion. The Rt femoral venous access obtained under US guidance, and a 7 fr sheath was placed. A 5 fr balloon tipped temporary right ventricular transvenous pacemaker was positioned at RV apex under fluoroscopic guidance. Adequate pacing thresholds and stable capture was confirmed. The L common femoral artery was punctured under US guidance. This was exchanged to a 6 fr sheath. Following this the loop of the pigtail catheter was positioned in the non coronary sinus of valsalva. Aortic root aortography obtained to confirm the implant view. Under fluoro and US guidance R comon femoral artery was punctured and 6 fr sheath was inserted. 2 perclose sutures were deployed at the R common femoral arteriotomy site for closure, using a preclosure technique. IV heparin was given and ACT was above 250 sec. An Amplatz extra stiff wire was placed in the abdominal aorta. A 14 fr introducer sheath was advanced. An AL1 catheter was advanced into the aortic root over a regular j wire through the . The valve was crossed in using a 0.035 straight Glidewire and the AL1 catheter was advanced into the left ventricular chamber. An exchange length J-wire was placed through the AL1 catheter at the left ventricular apex, and the AL1 diagnostic catheter was exchanged for a 6 Fr. straight pigtail catheter. Simultaneous LV and aortic pressures were measured and gradient was 40 mmHg. This was followed by the placement of a 260 cm long preshaped Saphire stiff wire through the pigtail catheter at the LV apex. Over the Saphire wire, Ordoñez valve 26 S3 delivery system was advanced to descending thoracic aorta. The delivery system was advanced across the aortic arch under fluoroscopic guidance. The valve was deployed slowly while pacing. The delivery system was then walked back into the descending thoracic aorta. Postimplant TTE revealed no paravalvular leak. Mean gradient was 2 mmHg. Implantation depth: 90/10 R femoral sheath was removed and hemostasis obtained by tightening the perclose sutures. Angiogram revealed no significant stenosis and no extra-vasation Femoral venous pacer wire was removed. L femoral venous and artrial sheaths removed and hemostasis obtained by figure of 8 for venous and Angioseal for arterial. Patient was transferred to recovery room. Complication: none Estimated blood loss: 50 cc Angie Montaño MD, [facility] Embroidery Supervisor us Angie Montaño MD CV CARDIAC CATH PROCEDURES Final Result * (ABNORMAL) POCT Activated clotting time, low range (05/08/2025 8:36 AM CDT) ACT 310(H) 123 - 168 sec POC Performer [id number] JUDY POC Device Number [id number] JUDY Blood 05/08/2025 8:36 AM CDT 05/08/2025 8:36 AM CDT Result [facility] Angie Montaño MD LAB POCT ORDERABLES - DEVIC E Final Result JUDY [address] Department [place] [address] * TN AN PROCEDURE PLACEHOLDER (05/08/2025 7:53 AM CDT) Narrative Jeane Goldstein CRNA - 05/08/2025 7:53 AM CDT Jeane Goldstein CRNA 05/08/2025 7:54 AM Peripheral IV Catheter End time: 05/08/2025 7:30 AM Staff: Placed by: CHELSEY: Jeane Goldstein CRNA Preprocedure prep: Prep solution: alcohol PPE: gloves and provider hat/mask PIV line: Laterality: right Site: forearm Catheter size: 18 g Technique: direct visualization Procedure details: good blood return and occlusive dressing applied Number of attempts: 2 Other sites attempted: right forearm Assessment: Events: patient tolerated procedure well with no complications Result [facility] Yamile Yun MD ANESTHESIA ORDERABLES Final Result * Prepare RBC: 2 Units (05/08/2025 7:03 AM CDT) Pathologist [facility] Units requested 2 Units requested Ready [facility] Blood 05/08/2025 7:03 AM CDT 05/08/2025 7:03 AM CDT Narrative JUDY - 05/08/2025 7:03 AM CDT Specify Procedure:->TAVR Are special requirements needed? (All products are leukoreduced and CMV- safe)->No Angie Montaño MD BLOOD BANK PRODUCT ORDERABL ES Final Result Performing Organization Address [facility] Co de Phone Number [address] [address] * ABO/Rh (05/08/2025 6:23 AM CDT) ABO/Rh B Positive Blood 05/08/2025 6:23 AM CDT 05/08/2025 6:25 AM CDT Narrative JUDY - 05/08/2025 7:02 AM CDT Has the patient had Daratumumab or Isatuximab in the past 6 months?->Unknown Angie Montaño MD LAB BLOOD BANK TEST ORDERAB LES Final Result Performing Organization Address [facility] Co de Phone Number [address] [address] * Antibody screen (05/08/2025 6:23 AM CDT) Prakash, indirect, Gel Interpretation Negative ABSC Blood 05/08/2025 6:23 AM CDT 05/08/2025 6:25 AM CDT Narrative JUDY - 05/08/2025 7:02 AM CDT Has the patient had Daratumumab or Isatuximab in the past 6 months?->Unknown Angie Montaño MD LAB BLOOD BANK TEST ORDERAB LES Final Result Performing Organization Address [facility] Co de Phone Number [address] [address] from Last 3 Months Insurance [facility] MEDICARE ADVANTAGE [employer] MEDICARE ADVANTAGE [employer] MEDICARE ADVANTAGE Advance Directives For more information, please contact: [phone] * Full Code (Latest Code Status on File) Date Activated Date Inactivated Comments 05/08/2025 11:01 AM 05/09/2025 5:02 PM * Full Code Date Activated Date Inactivated Comments 02/16/2025 5:09 PM 02/16/2025 9:11 PM Care Teams Graphics Edit Technician Relationship Specialty Start Date End Date Fred Norwood PA PCP - General Family Medicine 09/26/19
--- OUTSIDE RECORDS SUMMARY | 2025-08-08 07:13 | XMS_ITS | Data Portability ---
Author Organization [facility] Address [address] [place] [address] Care Team Providers Care Bilingual Office Assistant Name Role Phone AKASH SMITH Primary Care Provider [phone] GENARO CERRATO Registered Route Associate ANA Huitron Primary Care Provider [phone] Assessment Encounter Date Assessment Date Assessment LastModified by Organization Details LastModified Time 01/24/2025 01/24/2025 I will take care of her 83-year-old gentleman who has a hypertension, hyperlipidemia has no complaints of chest pain and shortness of breath. Hypertension well-controlled. Continue with amlodipine along with olmesartan. Hyperlipidemia, LDL is in acceptable range. I will continue with atorvastatin 20 mg daily. Systolic murmur, I will get an echocardiogram to evaluate left diastolic function and valvular function. I will see him again in 6 months check lipid profile and CMP before follow-up In 6 months. June 12, 2024: 83-year-old gentleman who has hypertension, blood pressure is mildly elevated this may be related to his coughing and unable to sleep at night. I asked him to monitor his blood pressure after resolution of cough if he continued to have elevated blood pressure I will consider up titrating his medications. Hyperlipidemia, LDL is in acceptable range. Aortic stenosis, moderate to severe aortic stenosis with mild aortic regurgitation. He has no obvious signs of fluid overload or symptoms of congestive heart failure. I recommended him to monitor his symptoms if he has worsening of shortness of breath, chest pain or dizziness I will consider for referring him for aortic valve replacement sooner. Otherwise I will repeat his echocardiogram in 1 year to re-evaluate aortic valve. Persistent cough for last 2 months, I recommended him to see [facility]. I will see him again in 6 months. December 22, 2024: Chest pain, described as a pressure-like sensation intermittently occurs with the emotional stress. He has moderate aortic stenosis. I recommended him to repeat echocardiogram to re-evaluate aortic valve depending on aortic valve I will decide about ischemic workup. Hypertension , blood pressure is well-controlled continue with amlodipine 10 mg daily along with hydrochlorothiazide 12.5 mg a day and olmesartan 40 mg daily. Hyperlipidemia , LDL is in acceptable range continue with atorvastatin 40 mg p.o. daily. Aortic stenosis, I will repeat echocardiogram to re-evaluate aortic valve. I will see her again in 4 weeks and make further recommendation after reviewing echocardiogram. 06/2025: Severe aortic stenosis with mild aortic regurgitation I referred him to Dr. Warren lopez to evaluate for possible TAVR. I discussed with patient in detail options of treatment. He may require coronary angiography prior to the aortic valve replacement. Hypertension , blood pressure is well-controlled. Hyperlipidemia , LDL is in acceptable range. I will see him again 4 weeks ariela Not available 01/24/2025 11:01:20 02/21/2025 02/21/2025 I will take care of her 83-year-old gentleman who has a hypertension, hyperlipidemia has no complaints of chest pain and shortness of breath. Hypertension well-controlled. Continue with amlodipine along with olmesartan. Hyperlipidemia, LDL is in acceptable range. I will continue with atorvastatin 20 mg daily. Systolic murmur, I will get an echocardiogram to evaluate left diastolic function and valvular function. I will see him again in 6 months check lipid profile and CMP before follow-up In 6 months. June 12, 2024: 83-year-old gentleman who has hypertension, blood pressure is mildly elevated this may be related to his coughing and unable to sleep at night. I asked him to monitor his blood pressure after resolution of cough if he continued to have elevated blood pressure I will consider up titrating his medications. Hyperlipidemia, LDL is in acceptable range. Aortic stenosis, moderate to severe aortic stenosis with mild aortic regurgitation. He has no obvious signs of fluid overload or symptoms of congestive heart failure. I recommended him to monitor his symptoms if he has worsening of shortness of breath, chest pain or dizziness I will consider for referring him for aortic valve replacement sooner. Otherwise I will repeat his echocardiogram in 1 year to re-evaluate aortic valve. Persistent cough for last 2 months, I recommended him to see [facility]. I will see him again in 6 months. December 22, 2024: Chest pain, described as a pressure-like sensation intermittently occurs with the emotional stress. He has moderate aortic stenosis. I recommended him to repeat echocardiogram to re-evaluate aortic valve depending on aortic valve I will decide about ischemic workup. Hypertension , blood pressure is well-controlled continue with amlodipine 10 mg daily along with hydrochlorothiazide 12.5 mg a day and olmesartan 40 mg daily. Hyperlipidemia , LDL is in acceptable range continue with atorvastatin 40 mg p.o. daily. Aortic stenosis, I will repeat echocardiogram to re-evaluate aortic valve. I will see her again in 4 weeks and make further recommendation after reviewing echocardiogram. January 24, 2025: Severe aortic stenosis with mild aortic regurgitation I referred him to Dr. Warren Chapin him to evaluate for possible TAVR. I discussed with patient in detail options of treatment. He may require coronary angiography prior to the aortic valve replacement. Hypertension , blood pressure is well-controlled. Hyperlipidemia , LDL is in acceptable range. I will see him again 4 weeks. February 21, 2025: Severe aortic stenosis, no coronary artery disease by coronary angiography performed on February 16, 2025. He will be scheduled for further evaluation for TAVR and he is following with Dr. Warren Chapin. Hypertension, blood pressure is well-controlled continue with amlodipine 10 mg daily along with olmesartan 40 mg a day. Hyperlipidemia , I will continue with atorvastatin 40 mg daily. I will see him again after TAVR. ariela Not available 02/21/2025 11:43:34 05/17/2025 05/17/2025 I will take care of her 83-year-old gentleman who has a hypertension, hyperlipidemia has no complaints of chest pain and shortness of breath. Hypertension well-controlled. Continue with amlodipine along with olmesartan. Hyperlipidemia, LDL is in acceptable range. I will continue with atorvastatin 20 mg daily. Systolic murmur, I will get an echocardiogram to evaluate left diastolic function and valvular function. I will see him again in 6 months check lipid profile and CMP before follow-up In 6 months. June 12, 2024: 83-year-old gentleman who has hypertension, blood pressure is mildly elevated this may be related to his coughing and unable to sleep at night. I asked him to monitor his blood pressure after resolution of cough if he continued to have elevated blood pressure I will consider up titrating his medications. Hyperlipidemia, LDL is in acceptable range. Aortic stenosis, moderate to severe aortic stenosis with mild aortic regurgitation. He has no obvious signs of fluid overload or symptoms of congestive heart failure. I recommended him to monitor his symptoms if he has worsening of shortness of breath, chest pain or dizziness I will consider for referring him for aortic valve replacement sooner. Otherwise I will repeat his echocardiogram in 1 year to re-evaluate aortic valve. Persistent cough for last 2 months, I recommended him to see [facility]. I will see him again in 6 months. December 22, 2024: Chest pain, described as a pressure-like sensation intermittently occurs with the emotional stress. He has moderate aortic stenosis. I recommended him to repeat echocardiogram to re-evaluate aortic valve depending on aortic valve I will decide about ischemic workup. Hypertension , blood pressure is well-controlled continue with amlodipine 10 mg daily along with hydrochlorothiazide 12.5 mg a day and olmesartan 40 mg daily. Hyperlipidemia , LDL is in acceptable range continue with atorvastatin 40 mg p.o. daily. Aortic stenosis, I will repeat echocardiogram to re-evaluate aortic valve. I will see her again in 4 weeks and make further recommendation after reviewing echocardiogram. January 24, 2025: Severe aortic stenosis with mild aortic regurgitation I referred him to Dr. Warren Chapin him to evaluate for possible TAVR. I discussed with patient in detail options of treatment. He may require coronary angiography prior to the aortic valve replacement. Hypertension , blood pressure is well-controlled. Hyperlipidemia , LDL is in acceptable range. I will see him again 4 weeks. February 21, 2025: Severe aortic stenosis, no coronary artery disease by coronary angiography performed on February 16, 2025. He will be scheduled for further evaluation for TAVR and he is following with Dr. Warren Chapin. Hypertension, blood pressure is well-controlled continue with amlodipine 10 mg daily along with olmesartan 40 mg a day. Hyperlipidemia , I will continue with atorvastatin 40 mg daily. I will see him again after TAVR. 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 He has no symptoms of chest pain and shortness of breath. He was scheduled to have echocardiogram at [facility] next month. Hypertension , blood pressure is well-controlled continue current management. Hyperlipidemia continue with atorvastatin. I will see him again in 3 months check a basic metabolic profile before follow-up. [email or web address] Not available 05/17/2025 12:22:41 Plan of Treatment Reminders Order Date Submit Date Provider Last Modified By Organization Details Last Modified Time Details Appointments ANY 15 2024 09:15A M [facility] Not available Not available Not available ANY 15 2024 10:30A M Genaro goddard MD Not available Not available Not available Lab BMP, serum or plasma 2024 025 [place], [address], [place], [address], 08/06/2025 03:08:51 Referral None recorded. Procedures None recorded. Surgeries None recorded. Imaging None recorded. Medication Orders potassium chloride ER 10 mEq capsule,e xtended release 2024 025 [id number], [address], [place], [place], [id number], 03/20/2025 10:34:22 Patient TargetsNo targets recorded. Patient Instructions Encounter Date Encounter Id Patient Instructions Last Modified By Organization Details Last Modified Time 03/20/2025 [id number] preventing falls : care instructions [email or web address] Not available 03/20/2025 10:34:10 dash diet: care instructions Not available 03/20/2025 10:34:10 How To Lower Blood Pressure Not available 03/20/2025 10:34:10 Reason for Referral None Reported. Results Created Date Observation Date Name Description Value Unit Range Abnormal Flag Note LastModifiedBy Organization Detail LastModifiedTime 01/04/2001/02/2025 US, echoc ardio gram, trans thora cic, compl ete, w/ color flow No observ ation record ed. [facility] [address] [place], [address], 01/03/2025 15:08:32 02/21/20 25 02/16/2025 elect garett leyvagr am No observ ation record ed. [facility] Not Available 2024 11:41:27 05/17/20 25 05/09/2025 US, echoc ardio gram, trans thora cic, compl ete, w/ color flow No observ ation record ed. [facility] Not Available 2024 14:11:19 05/17/20 25 05/09/2025 edel breaux am No observ ation record ed. [facility] Not Available 2024 14:11:20 07/19/20 25 07/16/2025 cardi ac rehab ilita tion* No observ ation record ed. [facility] [address] [place], [address], 07/19/2025 16:46:28 Result Notes None recorded. Problems Name Problem SNOMED Code Status Onset Date Resolution Date Notes Provider Name and Address Organization Details Recorded Time Fracture of bone 884137659 Active MIR Diaz, [place] - [facility] 4 15:37:34 Bronchitis 10313364 Active Wa[place]ae Familia [place] null, [place] - [facility] 4 15:37:34 Fracture of phalanx of hand 184858581 Active Rachna Barbosa [place], [place] - [facility] 4 15:37:34 Upper respiratory infection 16683035 Active [place] Familia HI skylar, [place] - [facility] 4 15:37:34 Acute folliculitis 917704529 Active Akash Smith PA-C Attn: Domingo king,[address] [place], [address], [place] - [facility] 6 14:59:26 Systolic murmur 86239316 Active 2023 Theo Noonan [place] null, [place] - [facility] 4 11:36:42 Hyperlipidemia 79774189 Active 2023 Theo Noonan [place], [place] - [facility] 4 11:36:43 Vitamin D deficiency 16432930 Active 2023 [facility] Attn: Domingo king,[address] [facility], [place], [address], [place] - [facility] 4 13:41:57 Benign prostatic hyperplasia 006443327 Active 2023 [facility] Attn: Domingo king,[address] [facility], [place], [address], [place] - [facility] 4 13:41:58 Essential hypertension 47069750 Active 2023 [facility] Attn: Domingo king,[address] [facility], [place], [address], [place] - [facility] 4 13:42:00 Adult health examination Active 2023 [facility] Attn: Domingo king,[address] [facility], [place], [address], [place] - [facility] 4 13:42:05 Aortic valve regurgitation 05457725 Active 2024 MIR Berry, [place] - [facility] 5 10:22:24 Aortic valve stenosis 57730239 Active 2024 MIR Berry, [place] - [facility] 5 10:22:26 Problem Notes None recorded. Procedures Surgical History Date Name Laterality Status Provider Name and Address Organization Details Recorded Time 05/08/20 25 transcatheter aortic valve implantation completed MIR Berry - [facility] 05/17/2025 11:57:27 02/17/20 25 CARDIAC CATHETERIZATION (SURG) completed Not Available [facility] 02/20/2025 11:41:27 tonsillectomy completed MIR Berry - [facility] 12/10/2023 14:24:21 Vasectomy completed Alexa Albarran [place] - [facility] 11/15/2015 14:35:01 Imaging Results None recorded. Procedure Notes None recorded. Medical Equipment None Reported. Allergies No known drug allergies Medications Name Sig Start Date Stop Date Status Note LastModified by Organization Details LastModified Time cyclobenzap rine 10 mg tablet 06/12 completed Not Available Not Available Not Available amoxicillin 500 mg capsule 12/13 completed Not Available Not Available Not Available atorvastati n 40 mg tablet TAKE 1 AND 1/2 TABLETS BY MOUTH DAILY active Not Available Not Available No t Available potassium chloride ER 10 mEq capsule,ext ended release TAKE 1 CAPSULE BY MOUTH EVERY DAY active Not Available Not Available No t Available doxycycline hyclate 100 mg capsule TAKE 1 CAPSULE BY MOUTH TWICE DAILY FOR 7 DAYS 05/16 completed Not Available Not Available Not Available atorvastati n 20 mg tablet Take 1 tablet every day by oral route for 90 days. 12/22 completed Not Available Not Available Not Available loperamide 2 mg capsule TAKE 1 CAPSULE BY MOUTH FOUR TIMES DAILY NEEDED FOR DIARRHEA FOR UP TO 10 DAYS 12/13 completed Not Available Not Available Not Available Keflex 500 mg capsule Take 1 capsule every 8 hours by oral route as directed for 10 days. 12/13 completed Not Available Not Available Not Available prednisone 20 mg tablet t3 qd f3d, then take 2 qd f3d, then take 1 qd for 3 days, then take 1/2 qd f3d 12/22 completed Not Available Not Available Not Available simvastatin 10 mg tablet 12/13 completed Not Available Not Available Not Available potassium chloride ER 10 mEq tablet,exte nded release Take 1 tablet every day by oral route for 90 days. 12/22 completed Not Available Not Available Not Available amlodipine 5 mg tablet 12/13 completed Not Available Not Available Not Available Plavix 75 mg tablet Take 1 tablet every day by oral route. 2024 active Not Available Not Available Not Avai lable doxycycline monohydrate 100 mg tablet TAKE 1 TABLET BY MOUTH TWICE DAILY 06/12 completed Not Available Not Available Not Available Vitamin C 1,000 mg tablet Take 1 tablet every day by oral route. active Not Available Not Available No t Available amlodipine 10 mg tablet TAKE 1 TABLET BY MOUTH EVERY DAY active Not Available Not Available No t Available hydrochloro thiazide 12.5 mg capsule TAKE 1 CAPSULE BY MOUTH EVERY DAY active Not Available Not Available No t Available magnesium 500 mg (as magnesium oxide) tablet Take 1 tablet every day by oral route. active Not Available Not Available No t Available aspirin 81 mg chewable tablet Chew 1 tablet every day by oral route. 06/26 completed Not Available Not Available Not Available hydroxyzine HCl 25 mg tablet 06/26 completed Not Available Not Available Not Available codeine 10 mg-guaifene sin 100 mg/5 mL oral liquid TAKE 10 ML BY MOUTH EVERY 4 HOURS 12/22 completed Not Available Not Available Not Available methylpredn isolone 4 mg tablets in a dose pack FOLLOW PACKAGE DIRECTION S 06/12 completed Not Available Not Available Not Available albuterol sulfate HFA 90 mcg/actuati on aerosol inhaler INHALE 2 PUFFS BY MOUTH EVERY 4 HOURS active Not Available Not Available No t Available lisinopril 40 mg tablet 12/13 completed Not Available Not Available Not Available amoxicillin 875 mg-potassiu m clavulanate 125 mg tablet TAKE 1 TABLET BY MOUTH EVERY 12 HOURS 12/22 completed Not Available Not Available Not Available olmesartan 40 mg tablet TAKE 1 TABLET BY MOUTH EVERY DAY active Not Available Not Available No t Available azithromyci n 500 mg tablet TAKE 1 TABLET BY MOUTH EVERY DAY FOR 3 DAYS 06/12 completed Not Available Not Available Not Available Multivitami n 50 Plus tablet Take 1 tablet every day by oral route. active Not Available Not Available No t Available hydrochloro thiazide 12.5 mg tablet Take 1 tablet every day by oral route for 90 days. 11/30 completed Not Available Not Available Not Available ProChamber USE DIRECTED THREE TIMES DAILY active Not Available Not Available No t Available Vitamin D3 50 mcg (2,000 unit) capsule Take 1 capsule every other day by oral route. active Not Available Not Available No t Available Vitals Date Recorded Body height Body mass index (BMI) Body weight Oxygen saturation Oxygen saturation in Arterial blood by Pulse oximetry Heart rate Systolic And Diastolic Provider Name and Address Organization Details Last Updated DateTime 5 170.18 cm 24.1 kg/m2 72628.5 1 g 99 % 99 % 65 /min 136/74 mm[Hg] Dunia Poe MA [place] - [facility] 5 10:23:42 Date Recorded Body height Body mass index (BMI) Body weight Heart rate Oxygen saturation Oxygen saturation in Arterial blood by Pulse oximetry Systolic And Diastolic Provider Name and Address Organization Details Last Updated DateTime 5 170.18 cm 23.9 kg/m2 37929.2 7 g 64 /min 97 % 97 % 124/68 mm[Hg] Theo Noonan MA [place] - [facility] 5 11:04:27 Date Recorded Body height Body mass index (BMI) Body weight Oxygen saturation Oxygen saturation in Arterial blood by Pulse oximetry Heart rate Respiratory rate Systolic And Diastolic Provider Name and Address Organization Details Last Updated DateTime 5 170.18 cm 24.2 kg/m2 39468.6 7 g 98 % 98 % 64 /min 14 /min 120/64 mm[Hg] Rachan Barbosa [facility] - [facility] 5 10:15:54 Date Recorded Body height Body mass index (BMI) Body weight Oxygen saturation Oxygen saturation in Arterial blood by Pulse oximetry Heart rate Systolic And Diastolic Provider Name and Address Organization Details Last Updated DateTime 5 170.18 cm 24.8 kg/m2 81808.6 9 g 97 % 97 % 68 /min 132/60 mm[Hg] Leilani Medina LPN [place] - [facility] 5 08:31:40 Date Recorded Body height Body mass index (BMI) Body weight Oxygen saturation Oxygen saturation in Arterial blood by Pulse oximetry Heart rate Systolic And Diastolic Provider Name and Address Organization Details Last Updated DateTime 5 170.18 cm 24.8 kg/m2 82273.7 5 g 95 % 95 % 61 /min 116/62 mm[Hg] Dunia Poe [place] - [facility] 5 11:49:17 Social History Question Answer Notes LastModified by Organizat ion Details LastModified Time Tobacco Smoking Status Never Smoker Alexa Albarran [place] null, [place] - [facility] 11/15/2015 14:35:01 Are You Blind Or Do You Have Difficulty Seeing? No Information not available 05/16/2024 What Is Your Level Of Caffeine Consumption? Moderate Information not available 05/16/2024 Are You Deaf Or Do You Have Serious Difficulty Hearing? No Information not available 05/16/2024 What Type Of Diet Are You Following? REGULAR Information not available 05/16/2024 What Was The Date Of Your Most Recent Tobacco Screening? 05/16/2025 [email or web address] Information not available 05/16/2025 How Many Children Do You Have? 1 Information not available 05/16/2024 What Is Your Relationship Status? Information not available 05/16/2024 Do You Use Your Seat Belt Or Car Seat Routinely? Yes Information not available 05/16/2024 Do You Have Smoke And Carbon Monoxide Detectors In Your Home? Yes Information not available 05/16/2024 Are You Passively Exposed To Smoke? No Information no t available 05/16/2024 Has Tobacco Cessation Counseling Been Provided? No Information not available 05/16/2024 Sex: Male Functional Status Question Answer Note LastModified by Organizat ion Details LastModified Time Do you use any illicit or recreational drugs? No Information not available 12/10/2023 Do you or have you ever used any other forms of tobacco or nicotine? No Information not available 12/10/2023 What is your level of alcohol consumption? None Information not available 05/16/2024 Are you currently employed? No Information not available 05/16/2024 Are you able to care for yourself independently? Yes Information not available 05/16/2024 What is your exercise level? None Information not available 05/16/2024 Mental Status Question Answer Note LastModified by Organization D etails LastModified Time Do you feel stressed (tense, restless, nervous, or anxious, or unable to sleep at night)? [id number] Information not available 05/16/2024 Family History Relationship Description Onset Age of this Age Resolved Age Notes LastModified by Organization Details LastModified Time Father Myocardial infarction [email or web address] Not available 11/19 14:23:43 Father Aneurysm [email or web address] Not availab le 12/10/2023 14:24:04 Mother Heart failure [email or web address] Not available 12/10 14:23:54 Notes:none noted Medical History Condition Response Coronary Artery Disease N Other N Atrial Fibrillation N High Blood Pressure Y Kidney or Bladder Problems N Thyroid Problems N Depression N COPD N Blood Clots N GI Problems N Skin Problems N Eating Disorder N Anemia N Heart Attack ([place]) N Anxiety Disorder N Diabetes N Muscle, Joint, or Bone Problems N Arthritis N Seizures/Epilepsy N Have you had a colonoscopy in the last 1 0 years? N Acid Reflux (GERD) N Cancer N Stroke N Asthma N Allergies N Have you had a PSA blood test in the t year? N ADHD N Substance Abuse N High Cholesterol Y Hepatitis N Liver Disease N Headaches N Schizophrenia N Osteoporosis N Heart Failure N Immunizations Vaccine Type Date Status Note Provider Nam e and Address Organization Details Recorded Time Influenza, adjuvanted, trivalent, PF 8 completed [place], [place] - [facility] 09/06/2024 13:48:03 zoster recombinant 3 completed [place], [place] [facility] 09/06/2024 13:48:03 Influenza, high-dose, quadrivalent, PF 1 completed [place] [facility] 09/06/2024 13:48:03 Influenza, high-dose, quadrivalent, PF 2 completed [place] [facility] 09/06/2024 13:48:03 Influenza, high-dose, quadrivalent, PF 3 completed [place] [facility] 09/06/2024 13:48:03 Influenza, adjuvanted, quadrivalent, PF 0 completed [place] [facility] 09/06/2024 13:48:03 COVID-19, mRNA, LNP-S, PF, 30 mcg/0.3 mL dose 1 completed [place] [facility] 09/06/2024 13:48:03 COVID-19, mRNA, LNP-S, PF, 30 mcg/0.3 mL dose 1 completed [place] [facility] 09/06/2024 13:48:03 COVID-19, mRNA, LNP-S, PF, 30 mcg/0.3 mL dose 1 completed [place] [facility] 09/06/2024 13:48:03 COVID-19, mRNA, LNP-S, PF, 30 mcg/0.3 mL dose, maranda-sucrose 2 completed [place] [facility] 09/06/2024 13:48:03 COVID-19, mRNA, LNP-S, bivalent, PF, 30 mcg/0.3 mL dose 2 completed Rachna Barbosa [place], [place] [facility] 09/06/2024 13:48:03 RSV, recombinant, protein subunit RSVpreF, adjuvant reconstituted, 0.5 mL, PF 3 completed Rachna Barbosa [place], [place] [facility] 09/06/2024 13:48:03 COVID-19, mRNA, LNP-S, PF, maranda-sucrose, 30 mcg/0.3 mL 3 completed Rachna Barbosa [place] [place], [place] [facility] 09/06/2024 13:48:03 pneumococcal polysaccharide PPV23 5 completed Rachna Barbosa [place] [facility] 09/06/2024 13:48:03 pneumococcal polysaccharide PPV23 3 [place] [facility] 09/06/2024 13:48:03 influenza, unspecified formulation 1 completed Rachna Barbosa [place] [facility] 09/06/2024 13:48:03 Tdap 0 completed Rachna Barbosa [place] [facility] 09/06/2024 13:48:03 Pneumococcal conjugate PCV 13 5 completed Rachna Barbosa [place] [facility] 09/06/2024 13:48:03 zoster live 4 completed Rachna Barbosa [place] [facility] 09/06/2024 13:48:03 zoster live 5 completed Rachna Barbosa [place] [facility] 09/06/2024 13:48:03 Influenza, high-dose, trivalent, PF 6 completed Rachna Barbosa [place] [facility] 09/06/2024 13:48:03 Influenza, high-dose, trivalent, PF 9 completed Rachna Barbosa [place] [facility] 09/06/2024 13:48:03 Influenza, split virus, trivalent, preservative 4 [place] [facility] 09/06/2024 13:48:03 Influenza, split virus, trivalent, preservative 5 completed Rachna Barbosa [place] [facility] 09/06/2024 13:48:03 Influenza, split virus, trivalent, preservative 2 completed [place]ianae Barbosa [place] [facility] 09/06/2024 13:48:03 Influenza, split virus, trivalent, preservative 3 completed [facility] [place] [facility] 09/06/2024 13:48:03 Influenza, split virus, trivalent, PF 5 completed Rachna Barbosa [place] [facility] 09/06/2024 13:48:03 zoster recombinant 4 completed [facility] [place] [facility] 09/06/2024 13:48:12 COVID-19, mRNA, LNP-S, PF, 50 mcg/0.5 mL 4 completed [facility] [place] [facility] 09/06/2024 13:48:12 Influenza, high-dose, trivalent, PF 4 [facility] [place] [facility] 09/06/2024 13:48:13 Past Encounters Encounter ID Performer Location Encounter Start Date Encounter Closed Date Diagnosis/Indication Diagnosis SNOMED-CT Code Diagnosis ICD10 Code Diagnosis IMO Codes Diagnosis Note [id number] Santos Jensen MD [facility] [address] [place] [address] 11/15/2015 14:29:45 11/15/2015 15:01:29 Acute folliculitis 501269625 L73.9 [id number] Genaro Cerrato MD [facility] [address] [place] [address] 12/13/2023 10:42:32 12/14/2023 14:52:35 Essential hypertension 10906565 I10 Hyperlipidemia 42785379 E78.5 Systolic murmur 84434839 R01.1 [id number] Santos Jensen MD [facility] [address] [place] [address] 05/16/2024 11:44:20 05/17/2024 08:49:06 Coronary arteriosclerosis 97512625 I25.10 Acute bron chitis with bronchospasm 14142180 J20.8 Overweight 660562993 E66 .3 [id number] Genaro Cerrato MD [facility] [place] [facility] [address] [facility] [address] [place] [address] 06/12/2024 09:28:53 06/13/2024 08:11:26 Essential hypertension 98317385 I10 Hyperlipidemia 87895957 E78.5 Aortic rosalba ve regurgitation 14963412 I35.1 Aortic valve stenosis 60 227399 I35.0 [id number] Aleksandar Benavides DO [facility] [place] [facility] [address] [facility] [address] [place] [address] 06/26/2024 15:06:20 06/27/2024 12:03:21 Adult health examination 090617254 Z00.00 Healthy diet and exercise, HCM as discussed Hyperlipidemia 14419743 E78.5 Increase physical activity, heart healthy diet, drink water Eat a variety of foods every day. Good choices include fruits, vegetables , whole grains (like oatmeal), dried beans and peas, and nuts and seeds. Other good choices are soy products (like tofu) and fat-free or low-fat dairy products. Use olive and canola oils instead of butter, margarine, or hydrogenat ed or partially hydrogenat ed oils. (Canola oil margarine without trans fat is fine.) Replace red meat with fish, poultry, and soy protein (like tofu). Limit processed and packaged foods like chips, crackers, and cookies. Bake, broil, or steam foods instead of frying them. Be physically active. Get plenty of exercise every day. Go for a walk or jog, ride your bike, or play sports with friends. Stay at a healthy weight or lose weight by making the changes in eating and physical activity listed above. Losing just a small amount of weight, even 5 to 10 pounds, can reduce your risk for having a heart attack or stroke. Do not smoke. Smoking can increase the chance you will have a heart attack. If you need help quitting, talk to your doctor about stop-smoki ng programs and medicines. These can increase your chances of quitting for good. If you take medicine for high cholestero l, be sure to take it every day. Systolic murmur 95899245 R01.1 This is a stable condition the patient is asymptomat ic and followed by Cardiology Essential hypertension 63475760 I10 Take meds as ordered. Decrease caffeine and salt intake, work on diet and weight loss. Aerobic exercise 4 times per week for 30 min. Call for elevated blood pressures. Benign pro static hyperplasia 379575548 N40.1 This is a stable chronic condition we will continue to follow Vitamin D deficiency 347 68832 E55.9 CPM Acute bronchitis 6594677 2 J20.9 meds as ordered [id number] REGI Gill [facility] [address] [facility] [address] [place] [address] 09/06/2024 13:44:23 09/08/2024 13:11:03 Benign prostatic hyperplasia 690812150 N40.1 This is a stable chronic condition we will continue to follow Essential hypertension 13353175 I10 Take meds as ordered. Decrease caffeine and salt intake, work on diet and weight loss. Aerobic exercise 4 times per week for 30 min. Call for elevated blood pressures. Hyperlipidemia 18995610 E78.5 Increase physical activity, heart healthy diet, drink water Eat a variety of foods every day. Good choices include fruits, vegetables , whole grains (like oatmeal), dried beans and peas, and nuts and seeds. Other good choices are soy products (like tofu) and fat-free or low-fat dairy products. Use olive and canola oils instead of butter, margarine, or hydrogenat ed or partially hydrogenat ed oils. (Canola oil margarine without trans fat is fine.) Replace red meat with fish, poultry, and soy protein (like tofu). Limit processed and packaged foods like chips, crackers, and cookies. Bake, broil, or steam foods instead of frying them. Be physically active. Get plenty of exercise every day. Go for a walk or jog, ride your bike, or play sports with friends. Stay at a healthy weight or lose weight by making the changes in eating and physical activity listed above. Losing just a small amount of weight, even 5 to 10 pounds, can reduce your risk for having a heart attack or stroke. Do not smoke. Smoking can increase the chance you will have a heart attack. If you need help quitting, talk to your doctor about stop-smoki ng programs and medicines. These can increase your chances of quitting for good. If you take medicine for high cholestero l, be sure to take it every day. Vitamin D deficiency 347 92814 E55.9 CPM Overweight 879660441 E66 .3 Cough 35839549 R05.9 Patient improves with nebulizer he did not get a spacer with his Proventil I am going to order a spacer to use with his Proventil 2 to 3 times a day I am going to put him on prednisone with a taper, give him some Robitussin with codeine he has already had a chest x-ray he does not look sick in the office at all but I did discuss with him the next step would be a CT scan of his chest patient has never smoked [id number] REGI Gill [facility] [address] [facility] [address] [place] [address] 09/19/2024 11:48:49 09/20/2024 09:01:57 Benign prostatic hyperplasia 817969104 N40.1 This is a stable chronic condition we will continue to follow Bronchitis 07465274 J40 this is resolved and pateint is doing well Essential hypertension 29700451 I10 Take meds as ordered. Decrease caffeine and salt intake, work on diet and weight loss. Aerobic exercise 4 times per week for 30 min. Call for elevated blood pressures. Hyperlipidemia 75655359 E78.5 Increase physical activity, heart healthy diet, drink water Eat a variety of foods every day. Good choices include fruits, vegetables , whole grains (like oatmeal), dried beans and peas, and nuts and seeds. Other good choices are soy products (like tofu) and fat-free or low-fat dairy products. Use olive and canola oils instead of butter, margarine, or hydrogenat ed or partially hydrogenat ed oils. (Canola oil margarine without trans fat is fine.) Replace red meat with fish, poultry, and soy protein (like tofu). Limit processed and packaged foods like chips, crackers, and cookies. Bake, broil, or steam foods instead of frying them. Be physically active. Get plenty of exercise every day. Go for a walk or jog, ride your bike, or play sports with friends. Stay at a healthy weight or lose weight by making the changes in eating and physical activity listed above. Losing just a small amount of weight, even 5 to 10 pounds, can reduce your risk for having a heart attack or stroke. Do not smoke. Smoking can increase the chance you will have a heart attack. If you need help quitting, talk to your doctor about stop-smoki ng programs and medicines. These can increase your chances of quitting for good. If you take medicine for high cholestero l, be sure to take it every day. Vitamin D deficiency 347 44835 E55.9 CPM [id number] Genaro Cerrato MD [facility] [place] [facility] [address] [place] [address] 12/22/2024 10:54:48 12/25/2024 07:29:02 Essential hypertension 53024898 I10 Hyperlipidemia 72366574 E78.5 Aortic rosalba ve regurgitation 43769879 I35.1 Aortic valve stenosis 60 079953 I35.0 [id number] Genaro Cerrato MD [facility] [place] [facility] [address] [place] [address] 01/24/2025 10:17:05 01/25/2025 09:20:25 Essential hypertension 64294152 I10 Hyperlipidemia 76782738 E78.5 Aortic rosalba ve regurgitation 49190986 I35.1 Aortic valve stenosis 60 389811 I35.0 [id number] Genaro Cerrato MD [facility] [place] [facility] [address] [place] [address] 02/21/2025 10:56:23 02/22/2025 15:36:47 Essential hypertension 59272057 I10 Hyperlipidemia 78301451 E78.5 Aortic rosalba ve regurgitation 51336185 I35.1 Aortic valve stenosis 60 661639 I35.0 [id number] Aleksandar Benavides, DO [facility] [place] [facility] [address] [facility] [address] [place] [address] 03/20/2025 09:57:47 03/21/2025 09:09:53 Benign prostatic hyperplasia 729657502 N40.1 This is a stable chronic condition we will continue to follow Essential hypertension 61758291 I10 This is a well controlled chronic condition, continue current treatment plan, follow up six-month Take meds as ordered. Decrease caffeine and salt intake, work on diet and weight loss. Aerobic exercise 4 times per week for 30 min. Call for elevated blood pressures. Hyperlipidemia 80048337 E78.5 this is a stable chronic condition, continue current medication s clinical follow up six-month monthsIncr ease physical activity, heart healthy diet, drink waterEat a variety of foods every day. Good choices include fruits, vegetables , whole grains (like oatmeal), dried beans and peas, and nuts and seeds. Other good choices are soy products (like tofu) and fat-free or low-fat dairy products. U se olive and canola oils instead of butter, margarine, or hydrogenat ed or partially hydrogenat ed oils. (Canola oil margarine without trans fat is fine.) R eplace red meat with fish, poultry, and soy protein (like tofu). L imit processed and packaged foods like chips, crackers, and cookies. B willie, broil, or steam foods instead of frying them. B e physically active. Get plenty of exercise every day. Go for a walk or jog, ride your bike, or play sports with friends. S srinivasan at a healthy weight or lose weight by making the changes in eating and physical activity listed above. Losing just a small amount of weight, even 5 to 10 pounds, can reduce your risk for having a heart attack or stroke. D o not smoke. Smoking can increase the chance you will have a heart attack. If you need help quitting, talk to your doctor about stop-smoki ng programs and medicines. These can increase your chances of quitting for good. I f you take medicine for high cholestero l, be sure to take it every day. Vitamin D deficiency 347 06108 E55.9 CPM At low risk for fall 439 678672 Z91.81 4410333691 Severe aor tic valve stenosis 500133864 I35.0 [id number] he seen specialist and is going to have a TAVR, has an appt on the prior to procedure, he is very stable at appt today [id number] Genaro Cerrato MD [facility] [place] [facility] [address] [place] [address] 05/17/2025 11:28:17 05/18/2025 10:36:58 Essential hypertension 02437293 I10 Hyperlipidemia 31924371 E78.5 Aortic rosalba ve regurgitation 52729840 I35.1 Aortic valve stenosis 60 984529 I35.0 [id number] Aleksandar Benavides, [facility] [place] [facility] [place] [facility] [address] [place] [address] 05/16/2025 08:20:29 05/19/2025 10:33:50 Essential hypertension 59882730 I10 This is a well controlled chronic condition, continue current treatment plan, follow up six-month Take meds as ordered. Decrease caffeine and salt intake, work on diet and weight loss. Aerobic exercise 4 times per week for 30 min. Call for elevated blood pressures. Aortic valve stenosis 60 533053 I35.0 Patient is status post TAVR and doing well, he is followed by Cardiology , I have asked him to ask Dr Cali about dental prophylaxi s Hyperlipidemia 38605283 E78.5 this is a stable chronic condition, continue current medication s clinical follow up six-month monthsIncr ease physical activity, heart healthy diet, drink waterEat a variety of foods every day. Good choices include fruits, vegetables , whole grains (like oatmeal), dried beans and peas, and nuts and seeds. Other good choices are soy products (like tofu) and fat-free or low-fat dairy products. U se olive and canola oils instead of butter, margarine, or hydrogenat ed or partially hydrogenat ed oils. (Canola oil margarine without trans fat is fine.) R eplace red meat with fish, poultry, and soy protein (like tofu). L imit processed and packaged foods like chips, crackers, and cookies. B willie, broil, or steam foods instead of frying them. B e physically active. Get plenty of exercise every day. Go for a walk or jog, ride your bike, or play sports with friends. S srinivasan at a healthy weight or lose weight by making the changes in eating and physical activity listed above. Losing just a small amount of weight, even 5 to 10 pounds, can reduce your risk for having a heart attack or stroke. D o not smoke. Smoking can increase the chance you will have a heart attack. If you need help quitting, talk to your doctor about stop-smoki ng programs and medicines. These can increase your chances of quitting for good. I f you take medicine for high cholestero l, be sure to take it every day. Benign pro static hyperplasia 719040740 N40.1 This is a stable chronic condition we will continue to follow Chronic cough 23880394 R 05.3 [id number] had cxr, concerne for AR, he will discuss with cardiology Health Concerns Section Related Observation LastModified by Organization Detai ls LastModified Time None Recorded Concern Status LastModified by Organization Details LastModified Time None Recorded Advance Directives Directive None Recorded Payers Insurance Date Sequence Insurance Name Policy Number Policy Weaver Covered Member ID Weaver Member ID Guarantor Name 05/16/2025 [place] Nghia Calderon [id number] Nghia Calderon 05/16/[address] [facility] Nghia Calderon [id number] Nghia Calderon 05/16/2025 1 [place] Nghia Calderon [id number] Nghia Calderon 05/18/2025 1 [facility] (MEDICARE REPLACEMENT/ ADVANTAGE - HMO) [id number] Nghia Calderon [id number] Nghia Calderon 05/16/2025 1 [place] Nghia Calderon [id number] Nghia Calderon 05/16/2025 2 [facility] (MEDICARE REPLACEMENT/ ADVANTAGE - PPO) [id number] Nghia Zhu Kvng [id number] Nghia Kvng Notes Date Note Type Note Provider Name and Address Organization Details Recorded Time 5 text/html 83-year-old gentleman who has a history of hypertension and hyperlipidemia. He had a stress Myoview which is negative for myocardial ischemia. He has excellent is exercise capacity he achieved 17.2 Mets of exercise level.He denies complaints of chest pain, shortness of breath, orthopnea and paroxysmal dyspnea. He is able to carry out daily activities without difficulties. He is tolerating all his medications. June 12, 2024:83-year-old gentleman who has a history of hypertension and hyperlipidemia he had an echocardiogram on June 06, 2024 which shows normal left ventricular systolic function with grade 1 diastolic dysfunction. He also has moderate to severe aortic stenosis with peak pressure gradient of 47 mm of Hg and mean pressure gradient of 29 mm Hg with the mild aortic regurgitation. He is complaining of cough for last couple of months since he had respiratory infection. He denies complaints of chest pain tightness and pressure. He has no dizziness lightheadedness he works in his yd without any symptoms. He has to walk on treadmill for 30 minutes at the pace of 3.5 miles an hour which he has not done yet because too boring. He would rather work in his [place]. December 22, 2024:84 years old gentleman who has hypertension, hyperlipidemia and aortic stenosis he had a peak pressure gradient of 47 mm of Hg and mean pressure gradient of 29 mm Hg by echocardiogram performed on June 06, 2024 at that time he also had mild aortic regurgitation. He had a stress Myoview in 2020 which was negative for myocardial ischemia.He is fairly active exercises regularly. He is complaining of occasional episodes of chest pressure heaviness which occurs with emotional stress lasts for few minutes resolved spontaneously. He denies palpitation, dizziness light headedness or syncope. He has no orthopnea, paroxysmal nocturnal dyspnea or edema of lower extremities.. January 24, 2025: 84-year-old gentleman who has a history of hypertension, hyperlipidemia, aortic stenosis and aortic regurgitation had repeat echocardiogram which shows severe aortic stenosis aortic valve area of 0.91 cm2 by echocardiogram performed on January 02, 2025. He has no complaints of chest pain, shortness of breath, orthopnea, paroxysmal nocturnal dyspnea or edema of lower extremities. He is fairly active walk regularly without any symptoms. EK06/12/2024: Sinus rhythm with right bundle branch block. LABS:12/12/24:triglyceride s 63, cholesterol 117, LDL 60, HDL 51, sodium 142, K+ 4.3, BUN 23,creatinine 0.95, eGFR 80, glucose 97, calcium 10.2, ast 28, alt :triglycerides 97, cholesterol 140, LDL 80, HDL <=3, sodium 142, K+ 4.3, BUN 23,creatinine 0.85, eGFR 87, glucose 118, calcium 9.8, ast <=5, alt <=52:total cholesterol 152, triglycerides 71, Hdl 46, Ldl 92, sodium 142, K+ 4.3, BUN 26,creatinine 0.80, glucose 114, alt 17, ast 26 CARDIAC TESTING:ECHO 01/02/25:Normal left ventricular size and systolic function. LV ejection fraction, visually, is 60-65%. There is mild mitral valve regurgitation. The aortic valve area by the continuity equation (using VTI) is 0.91 cm2. Normal tricuspid valve appearance and function. There is mild tricuspid regurgitation. IVC not visualized.ECHO 06/06/24:Normal left ventricular size and systolic function. LV ejection fraction, visually, is 60-65%. Left ventricular diastolic parameters are consistent with mild (grade 1) diastolic dysfunction (impaired relaxation). The mitral valve demonstrate normal leaflet morphology. There is trivial mitral regurgitation. Aortic cusps appear severely calcified. Mild aortic valve regurgitation. Moderate to severe aortic valve stenosis with peak pressure gradient of 47 mmHg. Normal tricuspid valve appearance and function. There is trivial tricuspid regurgitation. STRESS 01/21/21:Excellent exercise capacity. Appropriate heart rate and blood pressure response to stress. No evidence of myocardial ischemia by EKG criteria. A separate Myoview report will be dictated. Normal left ventricular systolic function. No evidence of myocardial ischemia or infarction. Genaro Cerrato MD Attn: [employer]ing,[address] [place], [address], [facility] 01/24/2025 11:01:41 5 text/html 83-year-old gentleman who has a history of hypertension and hyperlipidemia. He had a stress Myoview which is negative for myocardial ischemia. He has excellent is exercise capacity he achieved 17.2 Mets of exercise level.He denies complaints of chest pain, shortness of breath, orthopnea and paroxysmal dyspnea. He is able to carry out daily activities without difficulties. He is tolerating all his medications. June 12, 2024:83-year-old gentleman who has a history of hypertension and hyperlipidemia he had an echocardiogram on June 06, 2024 which shows normal left ventricular systolic function with grade 1 diastolic dysfunction. He also has moderate to severe aortic stenosis with peak pressure gradient of 47 mm of Hg and mean pressure gradient of 29 mm Hg with the mild aortic regurgitation. He is complaining of cough for last couple of months since he had respiratory infection. He denies complaints of chest pain tightness and pressure. He has no dizziness lightheadedness he works in his yd without any symptoms. He has to walk on treadmill for 30 minutes at the pace of 3.5 miles an hour which he has not done yet because too boring. He would rather work in his yd.December 22, 2024:84 years old gentleman who has hypertension, hyperlipidemia and aortic stenosis he had a peak pressure gradient of 47 mm of Hg and mean pressure gradient of 29 mm Hg by echocardiogram performed on June 06, 2024 at that time he also had mild aortic regurgitation. He had a stress Myoview in 2020 which was negative for myocardial ischemia.He is fairly active exercises regularly. He is complaining of occasional episodes of chest pressure heaviness which occurs with emotional stress lasts for few minutes resolved spontaneously. He denies palpitation, dizziness light headedness or syncope. He has no orthopnea, paroxysmal nocturnal dyspnea or edema of lower extremities.January 24, 2025:84-year-old gentleman who has a history of hypertension, hyperlipidemia, aortic stenosis and aortic regurgitation had repeat echocardiogram which shows severe aortic stenosis aortic valve area of 0.91 cm2 by echocardiogram performed on January 02, 2025. He has no complaints of chest pain, shortness of breath, orthopnea, paroxysmal nocturnal dyspnea or edema of lower extremities. He is fairly active walk regularly without any symptoms.February 21, 2025: 84-year-old gentleman who has hypertension and hyperlipidemia and severe aortic stenosis. He had a cardiac catheterization on February 16, 2025 which reveals normal coronaries with severe aortic stenosis. He was scheduled for CT scan has a depression for TAVR. He denies complaints of chest pain tightness and pressure occasionally he has shortness of breath. EK06/12/2024: Sinus rhythm with right bundle branch block. LABS:12/12/24:triglyceride s 63, cholesterol 117, LDL 60, HDL 51, sodium 142, K+ 4.3, BUN 23, eGFR 80,creatinine 0.95, glucose 97, calcium 10.2, ast 28, alt :triglycerides 97, cholesterol 140, LDL 80, HDL <=3, sodium 142, K+ 4.3, BUN 23,creatinine 0.85, eGFR 87, glucose 118, calcium 9.8, ast <=5, alt <=52:total cholesterol 152, triglycerides 71, Hdl 46, Ldl 92, sodium 142, K+ 4.3, BUN 26,creatinine 0.80, glucose 114, alt 17, ast 26 CARDIAC TESTING:CARDIAC CATH 02/16/25:Severe aortic stenosis. ECHO 01/02/25:Normal left ventricular size and systolic function. LV ejection fraction, visually, is 60-65%. There is mild mitral valve regurgitation. The aortic valve area by the continuity equation (using VTI) is 0.91 cm2. Normal tricuspid valve appearance and function. There is mild tricuspid regurgitation. IVC not visualized.ECHO 06/06/24:Normal left ventricular size and systolic function. LV ejection fraction, visually, is 60-65%. Left ventricular diastolic parameters are consistent with mild (grade 1) diastolic dysfunction (impaired relaxation). The mitral valve demonstrate normal leaflet morphology. There is trivial mitral regurgitation. Aortic cusps appear severely calcified. Mild aortic valve regurgitation. Moderate to severe aortic valve stenosis with peak pressure gradient of 47 mmHg. Normal tricuspid valve appearance and function. There is trivial tricuspid regurgitation. STRESS 01/21/21:Excellent exercise capacity. Appropriate heart rate and blood pressure response to stress. No evidence of myocardial ischemia by EKG criteria. A separate Myoview report will be dictated. Normal left ventricular systolic function. No evidence of myocardial ischemia or infarction. Genaro Cerrato MD Attn: Accounting,[address] [place], [address], [facility] 02/21/2025 11:43:49 5 text/html ROS as noted in the HPI Patient is in for routine follow up for the following medical hcodpaslem-acs-mrbakc-Exe rcise: regulalry-colonoscopy: [facility] guard 2 years ago-shingles: UTD-Pneumococcal 13 and 23: UTD-Flu: UTD-Covid 19: UTD with boosterCovid: Discussed, he plans on getting-specialist: Dr Cali CardiologyTreepression screendeniesBenign prostatic hyperplasia with lower urinary tract symptoms, symptom details unspecified- currently not treated Erectile dysfunction, unspecified erectile dysfunction type- currently not on medications, has medsEssential hypertensionTaking medications, avoiding saltsMixed hyperlipidemia- taking medications, no side effects Stenosis of left carotid artery-Seeing cardiology , Dr Merritt Pavon is taking new1.Patient had echo and found out he has a calcified aortic valve and was referred for TAVR. he did have angiogram. He denies really having a lot of s/s and he works around land every day without any s/s REGI Gill Attn: Accounting,[address] [place], [address], [facility] 03/20/2025 11:09:35 5 text/html ROS as noted in the [facility] Patient is in for routine follow up for the following medical ejsjagwfft-bwt-ljwhgf-Exe rcise: regulalry-colonoscopy: [facility] guard 2 years ago-shingles: UTD-Pneumococcal 13 and 23: UTD-Flu: UTD-Covid 19: UTD with boosterCovid: Discussed, he plans on getting-specialist: Dr Cali CardiologyMarc screendeniesBenign prostatic hyperplasia with lower urinary tract symptoms, symptom details unspecified- currently not treated Erectile dysfunction, unspecified erectile dysfunction type- currently not on medications, has medsEssential hypertensionTaking medications, avoiding saltsMixed hyperlipidemia- taking medications, no side effects Stenosis of left carotid artery-Seeing cardiology , Dr Merritt Pavon is taking new1.admission admit 05/08 discharge 05/09 hospital course: Patient was admitted for a TAVR procedure he was kept in the hospital overnight he did very well during the procedure and he feels very good today, he does have a chronic cough x 8 months, had cxr, tried codeine and inhaler wtih minimal relief, no illness REGI Gill Attn: Accounting[address] , [place], [address], [place] [facility] 05/16/2025 08:53:43 5 text/html 83-year-old gentleman who has a history of hypertension and hyperlipidemia. He had a stress Myoview which is negative for myocardial ischemia. He has excellent is exercise capacity he achieved 17.2 Mets of exercise level.He denies complaints of chest pain, shortness of breath, orthopnea and paroxysmal dyspnea. He is able to carry out daily activities without difficulties. He is tolerating all his medications. June 12, 2024:83-year-old gentleman who has a history of hypertension and hyperlipidemia he had an echocardiogram on June 06, 2024 which shows normal left ventricular systolic function with grade 1 diastolic dysfunction. He also has moderate to severe aortic stenosis with peak pressure gradient of 47 mm of Hg and mean pressure gradient of 29 mm Hg with the mild aortic regurgitation. He is complaining of cough for last couple of months since he had respiratory infection. He denies complaints of chest pain tightness and pressure. He has no dizziness lightheadedness he works in his yd without any symptoms. He has to walk on treadmill for 30 minutes at the pace of 3.5 miles an hour which he has not done yet because too boring. He would rather work in his yd.December 22, 2024:84 years old gentleman who has hypertension, hyperlipidemia and aortic stenosis he had a peak pressure gradient of 47 mm of Hg and mean pressure gradient of 29 mm Hg by echocardiogram performed on June 06, 2024 at that time he also had mild aortic regurgitation. He had a stress Myoview in 2020 which was negative for myocardial ischemia.He is fairly active exercises regularly. He is complaining of occasional episodes of chest pressure heaviness which occurs with emotional stress lasts for few minutes resolved spontaneously. He denies palpitation, dizziness light headedness or syncope. He has no orthopnea, paroxysmal nocturnal dyspnea or edema of lower extremities.January 24, 2025:84-year-old gentleman who has a history of hypertension, hyperlipidemia, aortic stenosis and aortic regurgitation had repeat echocardiogram which shows severe aortic stenosis aortic valve area of 0.91 cm2 by echocardiogram performed on January 02, 2025. He has no complaints of chest pain, shortness of breath, orthopnea, paroxysmal nocturnal dyspnea or edema of lower extremities. He is fairly active walk regularly without any symptoms.February 21, 2025:84-year-old gentleman who has hypertension and hyperlipidemia and severe aortic stenosis. He had a cardiac catheterization on February 16, 2025 which reveals normal coronaries with severe aortic stenosis. He was scheduled for CT scan has a depression for TAVR. He denies complaints of chest pain tightness and pressure occasionally he has shortness of breath. May 17 2025:84-year-old gentleman who has a history of severe aortic stenosis had aortic valve replacement by TAVR on May 08, 2025 doing well. He has no symptoms of chest pain and shortness of breath. He denies orthopnea, paroxysmal nocturnal dyspnea or edema of lower extremities. He is complaining of cough. EK06/12/2024: Sinus rhythm with right bundle branch block. LABS:05/09/25:sodium 140, K+ 3.7, BUN 23, creatinine 0.84, glucose 105, calcium 8.9, alt 14, ast 24,wbc 11.60, hgb 14.1, hct 41.6, plt :triglycerides 63, cholesterol 117, LDL 60, HDL 51, sodium 142, K+ 4.3, BUN 23, eGFR 80,creatinine 0.95, glucose 97, calcium 10.2, ast 28, alt 328/:triglycerides 97, cholesterol 140, LDL 80, HDL <=3, sodium 142, K+ 4.3, BUN 23,creatinine 0.85, eGFR 87, glucose 118, calcium 9.8, ast <=5, alt <=52/:total cholesterol 152, triglycerides 71, Hdl 46, Ldl 92, sodium 142, K+ 4.3, BUN 26,creatinine 0.80, glucose 114, alt 17, ast 26 CARDIAC TESTING:CARDIAC CATH 02/16/25:Severe aortic stenosis. ECHO 05/09/25:Normal left ventricular cavity size. Normal Left ventricular wall thickness. Normal left ventricular systolic function. The Ejection Fraction (Carpenter's) is measured at 72 %. No aortic valve stenosis. The mean transaortic gradient is 8 mmHg. The aortic valve area by the continuity equation (using VTI) is 3.19 cm2. The aortic valve area by the continuity equation (using Peak Michael) is 2.97 cm2. A bioprosthetic stent-valve is present in the aortic position. There is no evidence of paravalvular aortic regurgitation.ECHO 01/02/25:Normal left ventricular size and systolic function. LV ejection fraction, visually, is 60-65%. There is mild mitral valve regurgitation. The aortic valve area by the continuity equation (using VTI) is 0.91 cm2. Normal tricuspid valve appearance and function. There is mild tricuspid regurgitation. IVC not visualized.ECHO 06/06/24:Normal left ventricular size and systolic function. LV ejection fraction, visually, is 60-65%. Left ventricular diastolic parameters are consistent with mild (grade 1) diastolic dysfunction (impaired relaxation). The mitral valve demonstrate normal leaflet morphology. There is trivial mitral regurgitation. Aortic cusps appear severely calcified. Mild aortic valve regurgitation. Moderate to severe aortic valve stenosis with peak pressure gradient of 47 mmHg. Normal tricuspid valve appearance and function. There is trivial tricuspid regurgitation. STRESS 01/21/21:Excellent exercise capacity. Appropriate heart rate and blood pressure response to stress. No evidence of myocardial ischemia by EKG criteria. A separate Myoview report will be dictated. Normal left ventricular systolic function. No evidence of myocardial ischemia or infarction. Genaro Cerrato MD Attn: Accounting,[address] [place], [address], [place] [facility] 05/17/2025 12:22:55
--- OUTSIDE RECORDS SUMMARY | 2025-08-08 07:13 | XMS_ITS | Encounter Summary ---
Author Organization [facility] Address [address] [place] [id number] Care Team Providers Care Wafer Fabrication Technician Name Role Phone Fred Norwood Primary Care Provider [phone] Encounter Details Date Type Department Care Team (Late st Contact Info) Description 07/20/2012 Orders Only [facility] ProviderKartik MD [address] [place] [id number] Social History Tobacco Use Types Packs/Day Years Used Date Smoking Tobacco: Never Assessed Sex and Gender Information Value Date Recorded Sex Assigned at Not on file Legal Sex Male 12:41 AM [employer]OMEN[employer]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 Historical Provider [facility] AILIN HERMAN Final Result documented in this encounter Visit Diagnoses Not on filedocumented in this encounter Additional Health Concerns Infection Onset Date Last Indicated Resolved Time COVID: Suspected 08/05/2023 08/05/2023 08/05/2023 2:57 PM CDT documented as of this encounter Care Teams Wafer Fabrication Technician Relationship Specialty Start Date End Date Fred Norwood PA PCP - General Family Medicine 09/26/19 documented as of this encounter
[2025-08-08 08:03] LABS: Anion Gap 9 mmol/L (4-12); Blood Urea Nitrogen 24 mg/dL (9-20); Calcium 9.9 mg/dL (8.4-10.2); Carbon Dioxide 28 mmol/L (22-30); Chloride 104 mmol/L (98-107); Estimated Glomerular Filt Rate > 60; Glucose 105 mg/dL (65-110); Osmolality Calculated 296 mOsm/kg (285-295); Potassium 4.5 mmol/L (3.4-5.0); Sodium 141 mmol/L (137-145)
== END 2025-08-08 07:08 | disposition home or self-care (01) ==
LOC: CHSLAB 07:10
PROVIDERS: PCP Physician Assistant
DX: I10 Essential (primary) hypertension (principal)
CPT/HCPCS: 36415; 80048

== ENCOUNTER 2025-10-05 08:00 | Outpatient (RCR) | payer MEDICARE, SELFPAY ==
[2025-07-11 13:15] VITALS: PULSE 69
[2025-07-11 14:00] VITALS: BP 130/73; PULSE 69; RESP 16; O2SAT 99; BMI 24.2
== END 2025-10-09 14:23 | disposition home or self-care (01) ==
PROVIDERS: PCP Physician Assistant
DX: Z95.2 Presence of prosthetic heart valve (principal)
CPT/HCPCS: 93798